=== PATIENT | female | born 1985 | race Caucasian/White ===

== ENCOUNTER 2018-07-27 21:51 | Emergency (ER) | payer MEDICAID ==
[~2018-07-27] VITALS: Ht 163.8 cm; Wt 110.2 kg
--- OUTSIDE RECORDS SUMMARY | 2018-07-27 21:56 | XMS REPORT | Continuity of Care Document ---
Author Organization Unknown Address Unknown Allergies Active Description Code Type Severity Reaction Onset Reported/Identified Relationship to Patient Clinical Status Yes Ceclor Drug Allergy N/A N/A 08/24/2013 Yes latex Drug Allergy N/A N/A 08/24/2013 Yes Penicillins Drug Allergy N/A N/A 08/24/2013 Medications There is no data. Problems Date Dx Coded Attending Type Code Diagnosis Diagnosed By 11/29/2007 LIBERTAD MURPHY MD V25.49 SURVEILLANCE OF OTHER CONTRACEPTIVE METHOD 11/29/2007 WADE KONG APRN V25.49 SURVEILLANCE OF OTHER CONTRACEPTIVE METHOD 05/20/2012 LIBERTAD MURPHY MD V72.42 TEST POSITIVE RESULT 05/20/2012 WADE KONG APRN V72.42 TEST POSITIVE RESULT 08/24/2013 WADE KONG APRN 719.47 PAIN IN JOINT INVOLVING ANKLE AND FOOT 08/24/2013 WADE KONG APRN 845.00 UNSPECIFIED SITE OF ANKLE SPRAIN Procedures Code [place] [address] URINE TEST (IN- HOUSE) 05/20/2012 Results There is no data. Encounters ACCT No. Visit Date/Time Discharge Status Pt. Type Provider Facility Loc./Unit Complaint [id number] 08/24/2013 08:50:00 08/24/2013 23:59:59 [facility] Outpatient WADE KONG APRN [id number] 05/20/2012 14:04:00 05/20/2012 23:59:59 [facility] Outpatient LIBERTAD MURPHY MD
[2018-07-27] MEDS ORDERED: ONDANSETRON 4 MG/2 ML (SDV) Z0FRAN IVP ONE (22:00)
[2018-07-27] MEDS ORDERED: diphenhydrAMINE 50 MG/ML INJ (BENADRYL) IVP ONE (22:00)
[2018-07-27] MEDS ORDERED: IBUPROFEN 800 MG (MOTRIN) TAB PO ONE (22:00)
[2018-07-27] MEDS ORDERED: NS IV 1000 ML 1,000 ML IV SCH (22:00)
--- NOTE | 2018-07-27 22:05 | ED EENT ---
History of Present Illness General Stated Complaint: EARACHE IN BOTH EARS,NAUSEA,FEVER Source: patient Exam Limitations: no limitations History of Present Illness Date Seen by Provider: Jul 27, 2018 Time Seen by Provider: 22:03 Initial Comments to ER per private vehicle with reports of awakening this morning with pain in both ears that has progressed throughout the day, nasal congestion, body aches nausea and fever. No cough and no shortness of breath. Timing/Duration: abrupt, this morning Severity: moderate Associated Symptoms: No cough; fever, nasal congestion/drainage Allergies and Home Medications Allergies Coded Allergies: Cefaclor (Verified Allergy, Unknown, 10/14/07) Patient Home Medication List Home Medication List Reviewed: Yes Review of Systems Review of Systems Constitutional: see HPI, chills, malaise Eyes: No Symptoms Reported Ears: No Symptoms Reported Nose: see HPI, congestion Mouth: no symptoms reported Throat: see HPI, pain Respiratory: no symptoms reported Cardiovascular: no symptoms reported Musculoskeletal: no symptoms reported Skin: no symptoms reported Neurological: No Symptoms Reported Hematologic/Lymphatic: No Symptoms Reported Immunological/Allergic: no symptoms reported Past Impshpc-Lffzkg-Bugtip Hx Patient Social History Recent Foreign Travel: No Contact w/Someone Who Travel: No Physical Exam Height, Weight, BMI Height: '" Weight: lbs. oz. kg; BMI Method: General Appearance: WD/WN, no apparent distress Eyes: bilateral eye normal inspection, bilateral eye PERRL, bilateral eye EOMI Ears: bilateral ear auricle normal, bilateral ear canal normal, bilateral ear TM normal Mouth/Throat: normal mouth inspection, pharynx normal; No maxillary swelling, No pharynx swelling, No pharynx tenderness, No tongue swollen, No tonsillar exudate, No tonsillar swelling, No trismus, No uvula swelling, No voice changes Neck: non-tender, full range of motion Cardiovascular: tachycardia (tachycardic at 145) Respiratory: lungs clear, normal breath sounds, no respiratory distress, no accessory muscle use; No decreased breath sounds, No accessory muscle use, No crackles, No rales, No rhonchi, No stridor, No wheezing Neurologic/Psychiatric: alert, normal mood/affect, oriented x 3 Skin: normal color, warm/dry Progress/Results/Core Measures Results/Orders Lab Results Laboratory Tests Test 07/27/18 22:05 Range/Units White Blood Count 12.0 H 4.3-11.0 10^3/uL Red Blood Count 5.01 4.35-5.85 10^6/uL Hemoglobin 14.2 11.5-16.0 G/DL Hematocrit 41 35-52 % Mean Corpuscular Volume 83 80-99 FL Mean Corpuscular Hemoglobin 28 25-34 PG Mean Corpuscular Hemoglobin Concent 34 32-36 G/DL Red Cell Distribution Width 14.1 10.0-14.5 % Platelet Count 284 130-400 10^3/uL Mean Platelet Volume 9.1 7.4-10.4 FL Neutrophils (%) (Auto) 81 H 42-75 % Lymphocytes (%) (Auto) 9 L 12-44 % Monocytes (%) (Auto) 7 0-12 % Eosinophils (%) (Auto) 2 0-10 % Basophils (%) (Auto) 0 0-10 % Neutrophils # (Auto) 9.8 H 1.8-7.8 X 10^3 Lymphocytes # (Auto) 1.1 1.0-4.0 X 10^3 Monocytes # (Auto) 0.9 0.0-1.0 X 10^3 Eosinophils # (Auto) 0.2 0.0-0.3 10^3/uL Basophils # (Auto) 0.0 0.0-0.1 10^3/uL Serum Test, Qualitative NEGATIVE NEGATIVE My Orders Orders - SARAH HIDALGO APRN Ns Iv 1000 Ml (Sodium Chloride 0.9%) (07/27/18 22:00) Ekg Tracing (07/27/18 22:00) Cbc With Automated Diff (07/27/18 22:00) Basic Metabolic Panel (07/27/18 22:00) Hcg,Qualitative Serum (07/27/18 22:00) Ondansetron Injection (Zofran Injectio (07/27/18 22:00) Diphenhydramine Injection (Benadryl Inje (07/27/18 22:00) Ibuprofen Tablet (Motrin Tablet) (07/27/18 22:00) Influenza A And B Antigens (07/27/18 22:02) Medications Given in ED Current Medications Medications Dose Ordered Sig/Kd Route Start Time Stop Time Status Last Admin Dose Admin Diphenhydramine HCl 12.5 mg ONCE ONCE IVP 07/27/18 22:00 07/27/18 22:03 DC 07/27/18 22:21 12.5 MG Ibuprofen 800 mg ONCE ONCE PO 07/27/18 22:00 07/27/18 22:03 DC 07/27/18 22:17 800 MG Ondansetron HCl 4 mg ONCE ONCE IVP 07/27/18 22:00 07/27/18 22:03 DC 07/27/18 22:19 4 MG Departure Impression Primary Impression: Acute viral syndrome Disposition: HOME, SELF-CARE Condition: Stable Departure-Patient Inst. Decision time for Depature: 22:36 Referrals: CUCO JOHNSON DO (PCP/Family) Primary Care Physician Patient Instructions: VIRAL SYNDROME Add. Discharge Instructions: 1. Medication as directed do not take any other wuvh-dgi-igrpthj cough and cold remedies with this. Follow-up with your doctor later this week Scripts D-Methorphan Hb/P-Epd HCl/Bpm (Bromfed Dm Cough Syrup) 118 Ml Syrup 5 ML PO Q6H PRN for CONGESTION, #60 ML Prov: SARAH HIDALGO APRN 07/27/18 Work/School Note: Work Release Form Date Seen in the Emergency Department: Jul 27, 2018 Return to Work: Jul 30, 2018 SARAH HIDALGO APRN Jul 27, 2018 22:05
[2018-07-27 22:13] LABS: BASOPHILS % (AUTO) 0 % (0-10); EOSINOPHILS # (AUTO) 0.2 10^3/uL (0.0-0.3); EOSINOPHILS % (AUTO) 2 % (0-10); HEMATOCRIT 41 % (35-52); HEMOGLOBIN 14.2 G/DL (11.5-16.0); LYMPHOCYTES # (AUTO) 1.1 X 10^3 (1.0-4.0); LYMPHOCYTES % (AUTO) 9 % (12-44); MEAN CORPUSCULAR HEMOGLOBIN 28 PG (25-34); MEAN CORPUSCULAR HGB CONC 34 G/DL (32-36); MEAN CORPUSCULAR VOLUME 83 FL (80-99); MEAN PLATELET VOLUME 9.1 FL (7.4-10.4); MONOCYTES # (AUTO) 0.9 X 10^3 (0.0-1.0); MONOCYTES % (AUTO) 7 % (0-12); NEUTROPHILS # (AUTO) 9.8 X 10^3 (1.8-7.8); NEUTROPHILS % (AUTO) 81 % (42-75); PLATELET COUNT 284 10^3/uL (130-400); RED CELL DISTRIBUTION WIDTH 14.1 % (10.0-14.5)
[2018-07-27 22:35] LABS: CALCIUM 9.7 MG/DL (8.5-10.1); CREATININE SERUM 1.33 MG/DL (0.60-1.30); POTASSIUM 3.9 MMOL/L (3.6-5.0)
[2018-07-27] MEDS ORDERED: D-ME118S33 PO (22:37)
--- NOTE | 2018-07-27 22:50 | NUR ---
report given to RANDOLPH Ambrosio
[2018-07-27 23:37] VITALS: BP 119/91
== END 2018-07-27 23:42 | disposition home or self-care (01) ==
LOC: EDUNIT# 21:51 → ER 21:53
DX: B34.9 Viral infection, unspecified (principal); Z88.1 Allergy status to other antibiotic agents
CPT/HCPCS: 36415; 80048; 84703; 85025; 87804; 93005

== ENCOUNTER 2019-12-13 22:05 | Emergency (ER) | payer MEDICAID ==
[~2019-12-13] VITALS: Ht 162 cm; Wt 100.0 kg
[~2019-12-13 22:05] MED LIST: D-ME118S33 PO
[2019-12-13] MEDS ORDERED: NS IV 1000 ML 1,000 ML IV SCH (22:38)
[2019-12-13] MEDS ORDERED: RX-ALBUTEROL INHALER (VENTOLIN HFA) 18 GM IH STA (22:38)
[2019-12-13] MEDS ORDERED: LEVOFLOXACIN 750 MG/150 ML IV 150 ML IV ONE (22:45)
[2019-12-13 22:56] LABS: BASOPHILS % (AUTO) 1 % (0-10); EOSINOPHILS # (AUTO) 0.2 10^3/uL (0.0-0.3); EOSINOPHILS % (AUTO) 3 % (0-10); HEMATOCRIT 39 % (35-52); HEMOGLOBIN 12.9 G/DL (11.5-16.0); LYMPHOCYTES # (AUTO) 2.6 X 10^3 (1.0-4.0); LYMPHOCYTES % (AUTO) 32 % (12-44); MEAN CORPUSCULAR HEMOGLOBIN 28 PG (25-34); MEAN CORPUSCULAR HGB CONC 33 G/DL (32-36); MEAN CORPUSCULAR VOLUME 85 FL (80-99); MEAN PLATELET VOLUME 9.1 FL (7.4-10.4); MONOCYTES # (AUTO) 0.6 X 10^3 (0.0-1.0); MONOCYTES % (AUTO) 7 % (0-12); NEUTROPHILS # (AUTO) 4.6 X 10^3 (1.8-7.8); NEUTROPHILS % (AUTO) 58 % (42-75); PLATELET COUNT 293 10^3/uL (130-400); RED CELL DISTRIBUTION WIDTH 13.8 % (10.0-14.5); WHITE BLOOD COUNT 8.1 10^3/uL (4.3-11.0)
[2019-12-13 23:05] LABS: BILIRUBIN,URINE NEGATIVE (NEGATIVE); CLARITY,URINE SL CLOUDY; COLOR,URINE YELLOW; GLUCOSE, URINE (UA) NEGATIVE (NEGATIVE); KETONES,URINE NEGATIVE (NEGATIVE); LEUKOCYTE ESTERASE ,URINE 1+ (NEGATIVE); NITRITE,URINE NEGATIVE (NEGATIVE); PROTEIN,URINE NEGATIVE (NEGATIVE)
[2019-12-13 23:08] LABS: ALBUMIN 3.7 GM/DL (3.2-4.5); POTASSIUM 4.5 MMOL/L (3.6-5.0)
[2019-12-13 23:09] LABS: CALCIUM 8.8 MG/DL (8.5-10.1)
[2019-12-13 23:10] LABS: TOTAL PROTEIN 6.8 GM/DL (6.4-8.2)
[2019-12-13 23:12] LABS: BILIRUBIN,TOTAL 0.7 MG/DL (0.1-1.0)
[2019-12-13 23:14] LABS: CREATININE SERUM 1.27 MG/DL (0.60-1.30)
[2019-12-13 23:15] LABS: RBC,URINE RARE /HPF; WBC,URINE 25-50 /HPF
[2019-12-13 23:16] LABS: BACTERIA,URINE FEW /HPF; SQUAMOUS EPITHELIAL CELL,UR 25-50 /HPF
--- NOTE | 2019-12-13 23:30 | ED Respiratory ---
General Chief Complaint: Respiratory Problems Stated Complaint: WHEEZING,SOB Nursing Triage Note: Pt arrives by POV with c/o shortness of breath and wheezing x 2 days; states she "always gets like this this time of year". Denies fever. Source: patient Exam Limitations: no limitations History of Present Illness Date Seen by Provider: Dec 13, 2019 Time Seen by Provider: 22:15 Initial Comments The patient arrives the ER by private conveyance with chief complaint of shortness of breath for the past 30 minutes with wheezing. No fevers or chills. Cough that is nonproductive. She has no known sick contacts or recent travel. She says about once a year she gets bronchitis or pneumonia similar to this. She does not have a history of asthma, COPD or smoking any cigarettes or vaporizers. She does follow with a primary care provider but has never been tested for asthma. She does not use inhalers. She's not having nausea, diarrhea, loss of taste or smell, nasal congestion or sore throat. she claims a history of chronic kidney disease stage III. she has gout and uses Allopurinol. Allergies and Home Medications Allergies Coded Allergies: Cefaclor (Verified Allergy, Unknown, 10/14/07) Home Medications D-Methorphan Hb/P-Epd HCl/Bpm 118 Ml Syrup, 5 ML PO Q6H PRN for CONGESTION Prescribed by: SARAH HIDALGO on 07/27/18 1597 Patient Home Medication List Home Medication List Reviewed: Yes Review of Systems Review of Systems Constitutional: No chills, No diaphoresis EENTM: No ear discharge, No ear pain Respiratory: cough; No phlegm; short of breath, wheezing Cardiovascular: No chest pain, No edema, No Hx of Intervention Gastrointestinal: No abdominal pain, No nausea, No vomiting Musculoskeletal: No back pain, No joint pain All Other Systems Reviewed Negative Unless Noted: Yes Past Kajfxmd-Bsdkgf-Igoxlb Hx Patient Social History Alcohol Use: Denies Use Recreational Drug Use: No Smoking Status: Never a Smoker 2nd Hand Smoke Exposure: No Recent Foreign Travel: No Contact w/Someone Who Travel: No Recent Infectious Disease Expo: No Recent Hopitalizations: No Past Medical History Surgeries: Yes Section Respiratory: No Cardiac: No Neurological: No Genitourinary: No Gastrointestinal: No Musculoskeletal: No Endocrine: No HEENT: No Cancer: No Psychosocial: No Integumentary: No Blood Disorders: No Adverse Reaction/Blood Tranf: No Physical Exam Vital Signs - First Documented 12/13/19 23:05 Temp 36.7 Pulse 114 Resp 20 B/P (MAP) 137/107 (117) Pulse Ox 96 O2 Delivery Room Air Capillary Refill : Less Than 3 Seconds Height: 5'4.50" Weight: 243lbs. oz. 110.439412zw; 38.00 BMI Method:Stated General Appearance: WD/WN, mild distress Eyes: Bilateral Eye Normal Inspection, Bilateral Eye PERRL, Bilateral Eye EOMI HEENT: PERRL/EOMI, TMs normal, pharynx normal Neck: full range of motion, normal inspection Respiratory: no respiratory distress, no accessory muscle use, rales; No rhonchi, No wheezing (left lower lobe) Cardiovascular: normal peripheral pulses, regular rate, rhythm Gastrointestinal: non tender, soft Neurologic/Psychiatric: alert, normal mood/affect, oriented x 3 Skin: normal color, warm/dry Focused Exam Lactate Level 12/13/19 22:45: Lactic Acid Level 0.86 Lactic Acid Level Laboratory Tests Test 12/13/19 22:45 Lactic Acid Level 0.86 MMOL/L (0.50-2.00) Progress/Results/Core Measures Suspected Sepsis Recent Fever Within 48 Hours: No Infection Criteria Present: None New/Unexplained Altered Menta: No Sepsis Screen: No Definite Risk SIRS Temperature: Pulse: 114 Respiratory Rate: 20 Laboratory Tests 12/13/19 22:45: White Blood Count 8.1 Blood Pressure 137 /107 Mean: 117 12/13/19 22:45: Lactic Acid Level 0.86 Laboratory Tests 12/13/19 22:45: Creatinine 1.27, INR Comment 1.0, Platelet Count 293, Total Bilirubin 0.7 Results/Orders Lab Results Laboratory Tests Test 12/13/19 22:45 12/13/19 22:51 Range/Units White Blood Count 8.1 4.3-11.0 10^3/uL Red Blood Count 4.60 4.35-5.85 10^6/uL Hemoglobin 12.9 11.5-16.0 G/DL Hematocrit 39 35-52 % Mean Corpuscular Volume 85 80-99 FL Mean Corpuscular Hemoglobin 28 25-34 PG Mean Corpuscular Hemoglobin Concent 33 32-36 G/DL Red Cell Distribution Width 13.8 10.0-14.5 % Platelet Count 293 130-400 10^3/uL Mean Platelet Volume 9.1 7.4-10.4 FL Neutrophils (%) (Auto) 58 42-75 % Lymphocytes (%) (Auto) 32 12-44 % Monocytes (%) (Auto) 7 0-12 % Eosinophils (%) (Auto) 3 0-10 % Basophils (%) (Auto) 1 0-10 % Neutrophils # (Auto) 4.6 1.8-7.8 X 10^3 Lymphocytes # (Auto) 2.6 1.0-4.0 X 10^3 Monocytes # (Auto) 0.6 0.0-1.0 X 10^3 Eosinophils # (Auto) 0.2 0.0-0.3 10^3/uL Basophils # (Auto) 0.0 0.0-0.1 10^3/uL Prothrombin Time 13.0 12.2-14.7 SEC INR Comment 1.0 0.8-1.4 Activated Partial Thromboplast Time 31 24-35 SEC Sodium Level 139 135-145 MMOL/L Potassium Level 4.5 3.6-5.0 MMOL/L Chloride Level 108 H 98-107 MMOL/L Carbon Dioxide Level 21 21-32 MMOL/L Anion Gap 10 5-14 MMOL/L Blood Urea Nitrogen 17 7-18 MG/DL Creatinine 1.27 0.60-1.30 MG/DL Estimat Glomerular Filtration Rate 49 BUN/Creatinine Ratio 13 Glucose Level 91 70-105 MG/DL Lactic Acid Level 0.86 0.50-2.00 MMOL/L Calcium Level 8.8 8.5-10.1 MG/DL Corrected Calcium 9.0 8.5-10.1 MG/DL Total Bilirubin 0.7 0.1-1.0 MG/DL Aspartate Amino Transf (AST/SGOT) 16 5-34 U/L Alanine Aminotransferase (ALT/SGPT) 36 0-55 U/L Alkaline Phosphatase 55 40-136 U/L Total Protein 6.8 6.4-8.2 GM/DL Albumin 3.7 3.2-4.5 GM/DL Urine Color YELLOW Urine Clarity SL CLOUDY Urine pH 6.0 5-9 Urine Specific Rodessa 1.010 L 1.016-1.022 Urine Protein NEGATIVE NEGATIVE Urine Glucose (UA) NEGATIVE NEGATIVE Urine Ketones NEGATIVE NEGATIVE Urine Nitrite NEGATIVE NEGATIVE Urine Bilirubin NEGATIVE NEGATIVE Urine Urobilinogen 0.2 < = 1.0 MG/DL Urine Leukocyte Esterase 1+ H NEGATIVE Urine RBC (Auto) 2+ H NEGATIVE Urine RBC RARE /HPF Urine WBC 25-50 H /HPF Urine Squamous Epithelial Cells 25-50 H /HPF Urine Crystals NONE /LPF Urine Bacteria FEW H /HPF Urine Casts NONE /LPF Urine Mucus NEGATIVE /LPF Urine Culture Indicated YES My Orders Orders - CATHERINE NAVARRO Cbc With Automated Diff (12/13/19 22:38) Comprehensive Metabolic Panel (12/13/19 22:38) Blood Culture (12/13/19 22:38) Sputum Culture (12/13/19 22:38) Urinalysis (12/13/19 22:38) Urine Culture (12/13/19 22:38) Protime With Inr (12/13/19 22:38) Partial Thromboplastin Time (12/13/19 22:38) Chest 1 View, Ap/Pa Only (12/13/19 22:38) Ed Iv/Invasive Line Start (12/13/19 22:38) Ed Iv/Invasive Line Start (12/13/19 22:38) Vital Signs Adult Sepsis Patie Q15M (12/13/19 22:38) O2 (12/13/19 22:38) Remove Rings In Anticipation O (12/13/19 22:38) Lactic Acid Analyzer (12/13/19 22:38) Ns Iv 1000 Ml (Sodium Chloride 0.9%) (12/13/19 22:38) Levofloxacin 750 Mg/150 Ml Iv (Levaquin (12/13/19 22:45) Rx-Albuterol Inhaler (Rx-Ventolin Hfa) (12/13/19 22:38) Medications Given in ED Current Medications Medications Dose Ordered Sig/Kd Route Start Time Stop Time Status Last Admin Dose Admin Levofloxacin/ Dextrose 150 ml @ 100 mls/hr ONCE ONCE IV 12/13/19 22:45 12/14/19 00:14 12/13/19 23:12 100 MLS/HR Vital Signs/I&O 12/13/19 23:05 Temp 36.7 Pulse 114 Resp 20 B/P (MAP) 137/107 (117) Pulse Ox 96 O2 Delivery Room Air Capillary Refill : Less Than 3 Seconds Blood Pressure Mean: 117 Progress Note : Time: 23:29 Progress Note patient's tachycardic around 110-115 and has a cough with rails and subjective shortness of air. Oxygen sats are 96-98% on room air. No history of lung disease. Plan to initiate a septic workup but her white count was not elevated nor is her respiratory rate so she is not septic. We'll give her a liter of fluids to help rehydrate her and a pro-air inhaler which she said she did get some improvement from. Because of her history of Ceclor allergy we will give her Levaquin. no clear infiltrate on chest x-ray and no white count. Could be a viral versus bacterial pneumonia so we will swab her for COVID-19 and put her on outpatient Levaquin. Diagnostic Imaging Diagonstic Imaging: Xray Plain Films/CT/US/NM/MRI: chest Comments no clear infiltrate on one view chest x-ray. Reviewed: Reviewed by Me Departure Impression Primary Impression: Pneumonia Qualified Codes: J18.9 - Pneumonia, unspecified organism Additional Impression: Person under investigation for COVID-19 Disposition: 01 HOME, SELF-CARE Condition: Improved Departure-Patient Inst. Decision time for Depature: 23:30 Referrals: CUCO JOHNSON DO (PCP/Family) Primary Care Physician Patient Instructions: Pneumonia, Adult (DC), Coronavirus Disease 2019 (COVID- 19) Overview Add. Discharge Instructions: 2 puffs of albuterol through the spacer every 4 hours as necessary for wheezing or chronic cough. Tessalon Perles 1 capsule every 6 hours as necessary for coughing. Drink plenty of fluids. Stay quarantined for 10 days from now until 12/22/19 and you are 72 hours without symptoms. set up inspector the Levaquin and take one tablet daily with food for the next 6 days. We will call you in the next 2-3 days with results from your COVID-19 test. All discharge instructions reviewed with patient and/or family. Voiced understanding. Scripts Levofloxacin (Levaquin) 750 Mg Tablet 750 MG PO DAILY for 6 Days, #6 TAB 0 Refills Prov: CATHERINE NAVARRO 12/13/19 Benzonatate (TESSALON PERLES) 100 Mg Capsule 100 MG PO Q6H PRN for COUGH, #30 CAP 0 Refills Prov: CATHERINE NAVARRO 12/13/19 Work/School Note: Work Release Form Date Seen in the Emergency Department: Dec 13, 2019 Return to Work: Dec 23, 2019 Restrictions: No Restrictions Other Restrictions Listed Below: May return to work 10 days from start of symptoms and 72 hours symptom free CATHERINE NAVARRO Dec 13, 2019 23:30
[2019-12-13] MEDS ORDERED: LEVO750T9 PO (23:40)
[2019-12-13] MEDS ORDERED: BENZ100C18 PO (23:40)
[2019-12-14 00:21] VITALS: BP 133/104
--- NOTE | 2019-12-14 05:29 | Diagnostic Imaging Report ---
INDICATION: Shortness of air. COMPARISON: None FINDINGS: Single frontal radiographic view of the chest was obtained and shows moderate cardiomegaly and pulmonary vascular congestion. Pulmonary interstitium is also mildly diffusely prominent. There is no large effusion or pneumothorax. Osseous structures show no acute abnormalities. IMPRESSION: 1. Cardiomegaly with sequela of CHF including probable mild interstitial pulmonary edema. Dictated by: Dictated on workstation # [id number]
== END 2019-12-14 00:24 | disposition home or self-care (01) ==
LOC: EDUNIT# 22:05 → ER 22:06
DX: J18.9 Pneumonia, unspecified organism (principal); N18.3 Chronic kidney disease, stage 3 (moderate); M10.9 Gout, unspecified; Z88.1 Allergy status to other antibiotic agents; Z20.828 Contact with and (suspected) exposure to other viral communicable diseases
CPT/HCPCS: 71045; 80053; 81000; 83605; 85025; 85610; 85730; 87040; 87088; 94640; 96361; 96365; 99284; U0002; 36415; 87635

== ENCOUNTER 2020-01-23 02:26 | Inpatient (IN) | payer MEDICAID ==
[~2020-01-23] VITALS: Ht 163.8 cm; Wt 94.3 kg
[2020-01-23] VITALS (7 sets, daily range): BP systolic 102–134; BP diastolic 72–95
[~2020-01-23 02:26] MED LIST changes: +BENZ100C18 PO; +LEVO750T9 PO
[2020-01-23] MEDS ORDERED: LACTATED RINGERS 1,000 ML IV ONE (02:55)
[2020-01-23 03:04] LABS: BASOPHILS # (AUTO) 0.1 10^3/uL (0.0-0.1); BASOPHILS % (AUTO) 1 % (0-10); EOSINOPHILS # (AUTO) 0.3 10^3/uL (0.0-0.3); EOSINOPHILS % (AUTO) 3 % (0-10); HEMATOCRIT 39 % (35-52); HEMOGLOBIN 12.5 g/dL (11.5-16.0); LYMPHOCYTES # (AUTO) 2.7 10^3/uL (1.0-4.0); LYMPHOCYTES % (AUTO) 26 % (12-44); MEAN CORPUSCULAR HEMOGLOBIN 28 pg (25-34); MEAN CORPUSCULAR HGB CONC 32 g/dL (32-36); MEAN CORPUSCULAR VOLUME 87 fL (80-99); MEAN PLATELET VOLUME 8.7 fL (9.0-12.2); MONOCYTES # (AUTO) 0.7 10^3/uL (0.0-1.0); MONOCYTES % (AUTO) 7 % (0-12); NEUTROPHILS # (AUTO) 6.8 10^3/uL (1.8-7.8); NEUTROPHILS % (AUTO) 64 % (42-75); PLATELET COUNT 266 10^3/uL (130-400); WHITE BLOOD COUNT 10.6 10^3/uL (4.3-11.0)
[2020-01-23 03:14] LABS: ALBUMIN 3.8 GM/DL (3.2-4.5); POTASSIUM 3.7 MMOL/L (3.6-5.0)
[2020-01-23 03:15] LABS: CALCIUM 8.8 MG/DL (8.5-10.1)
[2020-01-23 03:16] LABS: TOTAL PROTEIN 6.7 GM/DL (6.4-8.2)
[2020-01-23 03:18] LABS: BILIRUBIN,TOTAL 1.5 MG/DL (0.1-1.0)
[2020-01-23 03:20] LABS: CREATININE SERUM 1.51 MG/DL (0.60-1.30)
--- NOTE | 2020-01-23 03:38 | ED Respiratory ---
General Chief Complaint: Chest Wall Stated Complaint: CHEST TIGHTNESS Nursing Triage Note: TO ED VIA POV AND AMBULATORY TO ROOM 10 UNDER COVID PUI PRECAUTIONS. RECENT BRONCHITIS. USING SYMBICORT BID. TONIGHT WOKE UP, COUGHED UP PHLEGM, AND THEN FELT LIKE SHE COULDN'T CATCH HER BREATH. Source: patient Exam Limitations: no limitations History of Present Illness Date Seen by Provider: Jan 23, 2020 Time Seen by Provider: 02:48 Initial Comments Here with report of waking up the middle the night and coughing up phlegm. She had chest pain afterwards and felt like she couldn't catch her breath. She has not been sick recently although had pneumonia over a month ago. Patient denies contact with COVID positive persons or any but it's been sick. 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 Nobody in her family is sick. Reports that she was doing better after recent illness until suddenly tonight after she coughed. Timing/Duration: constant Severity: moderate Prior Episodes/Possible Cause: occasional episodes Modifying Factors: Worse With Coughing; Improves With Rest Associated Symptoms: cough; No fever/chills, No nasal congestion; shortness of breath; No sore throat, No wheezing Allergies and Home Medications Allergies Coded Allergies: Penicillins (Verified Allergy, Unknown, 01/23/20) cefaclor (Verified Allergy, Unknown, 10/14/07) Home Medications Benzonatate 100 Mg Capsule, 100 MG PO Q6H PRN for COUGH Prescribed by: CATHERINE NAVARRO on 12/13/19 2340 D-Methorphan Hb/P-Epd HCl/Bpm 118 Ml Syrup, 5 ML PO Q6H PRN for CONGESTION Prescribed by: SARAH HIDALGO on 07/27/187 Levofloxacin 750 Mg Tablet, 750 MG PO DAILY Prescribed by: CATHERINE NAVARRO on 12/13/19 2340 Patient Home Medication List Home Medication List Reviewed: Yes Review of Systems Review of Systems Constitutional: No chills, No fever EENTM: No nose congestion, No throat pain Respiratory: cough, short of breath Cardiovascular: chest pain; No edema Gastrointestinal: No abdominal pain, No nausea, No vomiting Genitourinary: no symptoms reported Musculoskeletal: no symptoms reported Skin: no symptoms reported All Other Systems Reviewed Negative Unless Noted: Yes Past Mdziven-Saevhb-Zyfymi Hx Past Med/Social Hx: Reviewed Nursing Past Med/Soc Hx Patient Social History Alcohol Use: Denies Use Recreational Drug Use: No Smoking Status: Never a Smoker 2nd Hand Smoke Exposure: No Recent Foreign Travel: No Contact w/Someone Who Travel: No Recent Infectious Disease Expo: No Recent Hopitalizations: No Physical Abuse: No Sexual Abuse: No Mistreated: No Fear: No Immunizations Up To Date Date of Influenza Vaccine: Dec 19, 2019 Past Medical History Surgeries: Yes Section Respiratory: No Cardiac: No Neurological: No Genitourinary: No Gastrointestinal: No Musculoskeletal: Yes Gout Endocrine: No HEENT: No Cancer: No Psychosocial: No Integumentary: No Blood Disorders: No Adverse Reaction/Blood Tranf: No Family Medical History Reviewed Nursing Family Hx Physical Exam Vital Signs - First Documented 01/23/20 01/23/20 02:45 04:24 Temp 36.3 Pulse 135 Resp 24 B/P (MAP) 130/104 (113) Pulse Ox 95 O2 Delivery Room Air O2 Flow Rate 2.00 Capillary Refill : Less Than 3 Seconds Height: 5'4.50" Weight: 243lbs. oz. 110.459795ym; 35.00 BMI Method:Stated General Appearance: WD/WN, no apparent distress HEENT: PERRL/EOMI, pharynx normal Neck: full range of motion, supple Respiratory: no accessory muscle use, crackles (left base) Cardiovascular: no murmur, tachycardia Gastrointestinal: non tender, soft Extremities: non-tender, normal inspection Neurologic/Psychiatric: alert, oriented x 3 Skin: normal color, warm/dry Progress/Results/Core Measures Suspected Sepsis Recent Fever Within 48 Hours: No Infection Criteria Present: Suspected New Infection New/Unexplained Altered Menta: No Sepsis Screen: Possible Severe Sepsis Risk SIRS Temperature: Pulse: 135 Respiratory Rate: 24 Laboratory Tests 01/23/20 02:50: White Blood Count 10.6 Blood Pressure 130 /104 Mean: 113 Laboratory Tests 01/23/20 02:50: Creatinine 1.51H, Platelet Count 266, Total Bilirubin 1.5H Results/Orders Lab Results Laboratory Tests Test 01/23/20 02:50 01/23/20 03:34 01/23/20 04:32 Range/Units White Blood Count 10.6 4.3-11.0 10^3/uL Red Blood Count 4.45 3.80-5.11 10^6/uL Hemoglobin 12.5 11.5-16.0 g/dL Hematocrit 39 35-52 % Mean Corpuscular Volume 87 80-99 fL Mean Corpuscular Hemoglobin 28 25-34 pg Mean Corpuscular Hemoglobin Concent 32 32-36 g/dL Red Cell Distribution Width 14.0 10.0-14.5 % Platelet Count 266 130-400 10^3/uL Mean Platelet Volume 8.7 L 9.0-12.2 fL Immature Granulocyte % (Auto) 0 % Neutrophils (%) (Auto) 64 42-75 % Lymphocytes (%) (Auto) 26 12-44 % Monocytes (%) (Auto) 7 0-12 % Eosinophils (%) (Auto) 3 0-10 % Basophils (%) (Auto) 1 0-10 % Neutrophils # (Auto) 6.8 1.8-7.8 10^3/uL Lymphocytes # (Auto) 2.7 1.0-4.0 10^3/uL Monocytes # (Auto) 0.7 0.0-1.0 10^3/uL Eosinophils # (Auto) 0.3 0.0-0.3 10^3/uL Basophils # (Auto) 0.1 0.0-0.1 10^3/uL Immature Granulocyte # (Auto) 0.0 0.0-0.1 10^3/uL D-Dimer 2.24 H 0.00-0.49 UG/ML Sodium Level 141 135-145 MMOL/L Potassium Level 3.7 3.6-5.0 MMOL/L Chloride Level 107 98-107 MMOL/L Carbon Dioxide Level 22 21-32 MMOL/L Anion Gap 12 5-14 MMOL/L Blood Urea Nitrogen 17 7-18 MG/DL Creatinine 1.51 H 0.60-1.30 MG/DL Estimat Glomerular Filtration Rate 40 BUN/Creatinine Ratio 11 Glucose Level 95 70-105 MG/DL Calcium Level 8.8 8.5-10.1 MG/DL Corrected Calcium 9.0 8.5-10.1 MG/DL Total Bilirubin 1.5 H 0.1-1.0 MG/DL Aspartate Amino Transf (AST/SGOT) 16 5-34 U/L Alanine Aminotransferase (ALT/SGPT) 28 0-55 U/L Alkaline Phosphatase 56 40-136 U/L Troponin I 0.034 H <0.028 NG/ML C-Reactive Protein High Sensitivity 1.19 H 0.00-0.50 MG/DL B-Type Natriuretic Peptide 497.0 H <100.0 PG/ML Total Protein 6.7 6.4-8.2 GM/DL Albumin 3.8 3.2-4.5 GM/DL Procalcitonin 0.05 <0.10 NG/ML Thyroid Stimulating Hormone (TSH) 3.41 0.35-4.94 UIU/ML Urine Color YELLOW Urine Clarity CLEAR Urine pH 5.5 5-9 Urine Specific [place] 1.020 1.016-1.022 Urine Protein NEGATIVE NEGATIVE Urine Glucose (UA) NEGATIVE NEGATIVE Urine Ketones NEGATIVE NEGATIVE Urine Nitrite NEGATIVE NEGATIVE Urine Bilirubin NEGATIVE NEGATIVE Urine Urobilinogen 0.2 < = 1.0 MG/DL Urine Leukocyte Esterase TRACE H NEGATIVE Urine RBC (Auto) NEGATIVE NEGATIVE Urine RBC NONE /HPF Urine WBC NONE /HPF Urine Squamous Epithelial Cells 2-5 /HPF Urine Crystals NONE /LPF Urine Bacteria NEGATIVE /HPF Urine Casts NONE /LPF Urine Mucus NEGATIVE /LPF Urine Culture Indicated NO My Orders Orders - EBONY CAPONE MD Ed Iv/Invasive Line Start (01/23/20 02:55) Ekg Tracing (01/23/20 02:55) Monitor-Rhythm Ecg Trace Only (01/23/20 02:55) Chest 1 View, Ap/Pa Only (01/23/20 02:55) Ed Iv/Invasive Line Start (01/23/20 02:55) Lactated Ringers (Lr 1000 Ml Iv Solution (01/23/20 02:55) Cbc With Automated Diff (01/23/20 02:55) Comprehensive Metabolic Panel (01/23/20 02:55) Hs C Reactive Protein (01/23/20 02:55) Fibrin Degradation Products (01/23/20 02:55) Procalcitonin (Pct) (01/23/20 02:55) Thyroid Stimulating Hormone (01/23/20 02:55) Troponin I (01/23/20 02:55) Ua Culture If Indicated (01/23/20 03:19) BNP (01/23/20 03:31) Fentanyl Injection (Sublimaze Injection (01/23/20 04:07) Ondansetron Injection (Zofran Injectio (01/23/20 04:15) Enoxaparin Injection (Lovenox Injection) (01/23/20 04:30) Albuterol Inhaler (Ventolin Hfa) (01/23/20 06:00) Covid 19 Inhouse Test (01/23/20 04:31) Lung Scan V And P (Vq) (01/23/20 04:40) Medications Given in ED Current Medications Medications Dose Ordered Sig/Kd Route Start Time Stop Time Status Last Admin Dose Admin Enoxaparin Sodium 90 mg ONCE ONCE SC 01/23/20 04:30 01/23/20 04:31 DC 01/23/20 04:55 90 MG Lactated Ringer's 1,000 ml @ 0 mls/hr Q0M ONCE IV 01/23/20 02:55 01/23/20 02:57 DC 01/23/20 03:04 1,000 MLS/HR Ondansetron HCl 4 mg ONCE ONCE IVP 01/23/20 04:15 01/23/20 04:16 DC 01/23/20 04:19 4 MG Vital Signs/I&O 01/23/20 01/23/20 02:45 04:24 Temp 36.3 Pulse 135 122 Resp 24 20 B/P (MAP) 130/104 (113) 134/95 (108) Pulse Ox 95 O2 Delivery Room Air Nasal Cannula O2 Flow Rate 2.00 Capillary Refill : Less Than 3 Seconds Blood Pressure Mean: 113 Progress Note : Progress Note Seen and evaluated. IV, labs, chest x-ray and EKG ordered. UA ordered. LR 1 L bolus. Monitor patient. 0437: I did discuss the case with Dr. Castelan, on-call for hospitalist. Patient has markedly elevated d-dimer with tachycardia and O2 sats that are running at about 92%. Concern for PE. Patient does not have any leg pain or swelling but does have dilated heart and some findings on chest x- ray of heart failure or pulmonary edema. This could be infiltrate bed white count is normal in progress and pro-calcitonin is low. Greatest concern is for pulmonary embolism. Lovenox 1 mg/kg subcutaneous ordered. We will continue that twice a day. Dr. Castelan accepts patient for admission pending VQ scan. Patient is unable to do CT angiogram due to renal dysfunction. Admit, observation status. Patient agrees with plan. Due to presentation and concerns for bronchitis, we will go ahead and get COVID-19 rapid swab and confirmatory testing if needed. Patient will be person under investigation. ECG Initial ECG Impression Date: Jan 23, 2020 Initial ECG Impression Time: 02:55 Initial ECG Rate: 130 Initial ECG Rhythm: S.Tach Comment Sinus tachycardia with left ventricular hypertrophy. Normal axis. No evidence of ST elevation [place]. Similar to previous of 07/27/18. Interpreted by me. Diagnostic Imaging Diagonstic Imaging: Xray Plain Films/CT/US/NM/MRI: chest Comments Cardiomegaly with pulmonary vascular congestion Reviewed: Reviewed by Me Departure Communication (Admissions) Time/Spoke to Admitting Phy: 04:37 Impression Primary Impression: Dyspnea Qualified Codes: R06.02 - Shortness of breath Additional Impressions: Tachycardia Person under investigation for COVID-19 Disposition: 09 ADMITTED INPATIENT Condition: Stable Admissions Decision to Admit Reason: Admit from ER (General) Decision to Admit/Date: Jan 23, 2020 Time/Decision to Admit Time: 04:37 Departure-Patient Inst. Referrals: CUCO JOHNSON DO (PCP/Family) Primary Care Physician EBONY CAPONE MD Jan 23, 2020 03:38
[2020-01-23 03:40] LABS: BILIRUBIN,URINE NEGATIVE (NEGATIVE); CLARITY,URINE CLEAR; COLOR,URINE YELLOW; GLUCOSE, URINE (UA) NEGATIVE (NEGATIVE); KETONES,URINE NEGATIVE (NEGATIVE); LEUKOCYTE ESTERASE ,URINE TRACE (NEGATIVE); NITRITE,URINE NEGATIVE (NEGATIVE); PH,URINE 5.5 (5-9); PROTEIN,URINE NEGATIVE (NEGATIVE)
[2020-01-23 03:56] LABS: BACTERIA,URINE NEGATIVE /HPF
[2020-01-23] MEDS ORDERED: fentaNYL INJECTION 100 MCG/2 ML AMP IVP STA (04:07)
[2020-01-23] MEDS ORDERED: ONDANSETRON 4 MG/2 ML (SDV) Z0FRAN IVP ONE (04:15)
[2020-01-23] MEDS ORDERED: ENOXAPARIN 100 MG/1 ML (LOVENOX) SYR SC ONE (04:30)
[2020-01-23] MEDS ORDERED: ASPIRIN 81 MG CHEW (CHILDREN'S ASA) PO STA (04:44)
--- NOTE | 2020-01-23 05:03 | NUR ---
TELEPHONE REPORT RECEIVED FROM ED AT THIS TIME.
[2020-01-23] MEDS ORDERED: CATHETER FLUSH 10 ML SYR IV PRN (05:30)
--- NOTE | 2020-01-23 05:45 | NUR ---
JERICA SCOTT admitted to room 413-1, with an admitting diagnosis of DYSPNEA, TACHYCARDIA, COVID PUI, on 01/23/20 from [place] via , accompanied by .JERICA SCOTT introduced to surroundings, call light, bed controls, phone, TV, temperature control, lights, meal times, smoking policy, visitor policy, side rail policy, bathrooms and showers. Patient Rights given to patient in the handbook. JERICA SCOTT verbalizes understanding that [facility] is not responsible for the loss or damage to any personal effects or valuables that are kept in the patients posession during their hospitalization. JERICA SCOTT verbalizes understanding of Interdisciplinary Patient Education. Patient and/or family were informed about the Rapid Response Team and its purpose.
--- NOTE | 2020-01-23 05:58 | Diagnostic Imaging Report ---
INDICATION: Chest pain. TECHNIQUE: Single view chest 4:05 AM. CORRELATION STUDY: 12/13/2019 FINDINGS: Heart size remains mildly enlarged. Vasculature slightly increased. Increasing opacity at the right lung base could reflect underlying infiltrate. IMPRESSION: 1. Cardiac enlargement with what appears to be increasing component of vascularity. 2. Superimposed infiltrate or edema at the right lung base. Dictated by: Dictated on workstation # [id number]
[2020-01-23] MEDS ORDERED: RT-ALBUTEROL INHALER HFA (VENTOLIN HFA) 18 GM IH SCH (06:00)
[2020-01-23] MEDS ORDERED: ENOXAPARIN 100 MG/1 ML (LOVENOX) SYR SC SCH (06:00)
[2020-01-23] MEDS ORDERED: ALLO300T2 PO (06:15)
--- NOTE | 2020-01-23 08:29 | NUR ---
DR SANDRA NOTIFIED PER PT REQUEST REGARDING PAIN MEDICATION
[2020-01-23] MEDS ORDERED: RT-ALBUTEROL INHALER HFA (VENTOLIN HFA) 18 GM IH PRN (08:30)
[2020-01-23] MEDS: KETOROLAC 15 MG/ML VIAL IVP PRN ×3 (09:10→20:53)
[2020-01-23] MEDS: RT-ALBUTEROL INHALER HFA (VENTOLIN HFA) 18 GM IH SCH ×3 (09:12→21:35)
--- NOTE | 2020-01-23 11:24 | NUR ---
RECEIVED CALL FROM MONITORS FOR HR 130'S. RN WENT TO BEDSIDE AND PT WAS UP IN BA, NO COMPLAINTS OR DISCOMFORT REPORTED BY PT. WILL CONTINUE TO MONITOR.
--- NOTE | 2020-01-23 13:34 | History & Physical-Hospitalist ---
History of Present Illness HPI/Chief Complaint Pt is a 34yoCF with a PMH of gout and recent bronchitis who presented to the ER due to shortness of breath. She states that all of her symptoms started on 12/13 and she was diagnosed with bronchitis at that time. She has had a chronic cough and SOB since that time. She states she woke up last night though at 0138 and wa s very SOB and couldn't take a deep breath prompting her to seek evaluation in the ER. She states it felt just like when she was sick in November. She reports feeling better today and has been off oxygen even. 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 Source: patient Date Seen 01/23/20 Time Seen by a Provider: 13:28 Attending Physician Bryn Castelan MD PCP Jaspreet Waldrop DO Referring Physician Date of Admission Jan 23, 2020 at 04:42 Home Medications & Allergies Home Medications Reviewed patient Home Medication Reconciliation performed by pharmacy medication reconciliations it telecom technician and/or nursing. Patients Allergies have been reviewed. Allergies Allergies Coded Allergies Penicillins (Verified Allergy, Unknown, 01/23/20) cefaclor (Verified Allergy, Unknown, 10/14/07) Past Lfszthh-Cjynzf-Euszqv Hx Past Med/Social Hx: Reviewed Nursing Past Med/Soc Hx Patient Social History Marrital Status: Employed/Student: employed Alcohol Use: Denies Use Recreational Drug Use: No Smoking Status: Never a Smoker 2nd Hand Smoke Exposure: No Recent Foreign Travel: No Contact w/other who traveled: No Recent Hopitalizations: No Recent Infectious Disease Expo: No Immunizations Up To Date Date of Pneumonia Vaccine: Jan 22, 2013 Date of Influenza Vaccine: Jan 17, 2020 Past Medical History Surgeries: Section : No Musculoskeletal: Gout History of Blood Disorders: No Adverse Reaction to Blood Chinchilla: No Family History Reviewed Nursing Family Hx Review of Systems Constitutional: No chills, No fever EENTM: no symptoms reported Respiratory: cough, dyspnea on exertion, short of breath Cardiovascular: see HPI, chest pain; No edema Gastrointestinal: No abdominal pain, No constipation, No diarrhea, No nausea, No vomiting Genitourinary: No dysuria, No frequency Musculoskeletal: No joint pain, No muscle pain, No muscle weakness Skin: no symptoms reported Psychiatric/Neurological: No Symptoms Reported Physical Exam Physical Exam Vital Signs Vital Signs - First Documented 01/23/20 01/23/20 01/23/20 02:45 04:24 08:17 Temp 36.3 Pulse 135 Resp 24 B/P (MAP) 130/104 (113) Pulse Ox 95 O2 Delivery Room Air O2 Flow Rate 2.00 FiO2 28 Capillary Refill : Less Than 3 Seconds Height, Weight, BMI Height: 5'4.50" Weight: 243lbs. oz. 110.566102bw; 35.14 BMI Method:Stated General Appearance: No Apparent Distress, WD/WN, Obese HEENT: PERRL/EOMI, Moist Mucous Membranes Neck: Normal Inspection, Supple Respiratory: Lungs Clear, No Accessory Muscle Use, Other (on 2lpm) Cardiovascular: Regular Rate, Rhythm, No Murmur Gastrointestinal: Normal Bowel Sounds, Non Tender, Soft Extremity: Normal Capillary Refill, Normal Inspection, No Calf Tenderness, No Pedal Edema Neurologic/Psychiatric: Alert, Oriented x3, Normal Mood/Affect Skin: Normal Color, Warm/Dry Results Results/Procedures Labs Laboratory Tests 01/23/20 02:50 Patient resulted labs reviewed. Imaging [facility] [place], [place] NAME: JERICA SCOTT [facility] REC#: [id number] PT STATUS: ADM Colin : 1985 PHYSICIAN: EBONY CAPONE MD ADMIT DATE: 01/23/20 Signed Date of Exam:01/23/20 CHEST 1 VIEW, AP/PA ONLY INDICATION: Chest pain. TECHNIQUE: Single view chest 4:05 AM. CORRELATION STUDY: 12/13/2019 FINDINGS: Heart size remains mildly enlarged. Vasculature slightly increased. Increasing opacity at the right lung base could reflect underlying infiltrate. IMPRESSION: 1. Cardiac enlargement with what appears to be increasing component of vascularity. 2. Superimposed infiltrate or edema at the right lung base. Dictated by: Dictated on workstation # [id number] Dict: 01/23/20 0555 Trans: 01/23/20 1146 VALERIO [id number] Interpreted by: BILL ELIZABETH DO Electronically signed by: BILL ELIZABETH DO 01/23/20 1146 Assessment/Plan Admission Diagnosis Hypoxia Admission Status: Inpatient Order (span 2 midnights) Reason for Inpatient Admission: see below Assessment and Plan Hypoxia COVID19 sinus tachycardia Unclear etiology but COVID PCR pending at this time Questionable cardiac enlargement on CXR Cardiology consulted, appreciate recs Echo ordered Procal negative so hold abx D-dimer up so VQ scan ordered (unable to get CTA due to creatinine elevation) BNP elevated- lasix Metoprolol for sinus tach DVT ppx: on therapeutic lovenox for elevated D-dimer Diagnosis/Problems Diagnosis/Problems (1) Person under investigation for COVID-19 Status: Acute (2) Tachycardia Status: Acute (3) Dyspnea Status: Acute Qualifiers: Dyspnea type: shortness of breath Qualified Codes: R06.02 - Shortness of breath Clinical Quality Measures DVT/VTE Risk/Contraindication: Risk Factor Score Per Nursin RFS Level Per Nursing on Admit: 2=Moderate JORDAN SANDRA MD Jan 23, 2020 13:34
[2020-01-23] MEDS ORDERED: FUROSEMIDE 40 MG/4 ML INJ (LASIX) IVP NR (14:15)
[2020-01-23] MEDS ORDERED: KCL 20 MEQ TAB (K-DUR) PO NR (14:15)
[2020-01-23] MEDS ORDERED: meTOproloL SUCCINATE 50 MG (TOPROL XL) TAB PO NR (14:15)
--- NOTE | 2020-01-23 14:22 | Consultation-Cardiology ---
HPI-Cardiology Cardiology Consultation: Date of Consultation 01/23/20 Time Seen by a Provider: 14:17 Date of Admission Attending Physician Bryn Castelan MD Admitting Physician Jaspreet Waldrop DO Consulting Physician BRETT GALLAGHER MD, MA, FACP, FACC, FSCAI, CCDS HPI: Chief Complaint: Reason for consultation: Chest discomfort HPI 34 yo woman with several weeks of productive cough, diagnosed as bronchitis, treated with antibiotics, but continues to have persistent symptoms. After a coughing bout this am, has been experiencing a generalized feeling of chest tightness, mild, w/o radiation or relieving factors, but worse with coughing. Notes gen malaise. Does not report fever or chills. Feels short of breath with mild activity Review of Systems-Cardiology Review of Systems Constitutional: malaise, tiredness; No weight loss, No weight gain Eyes: No vision change Ears/Nose/Throat: No ear discharge, No nasal drainage, No recent hearing loss Respiratory: As described under HPI Cardiovascular: As described under HPI Gastrointestinal: No nausea, No vomiting Genitourinary: No dysuria, No hematuria, No urine frequency changes Musculoskeletal: No back pain, No joint pain Skin: No rash Psychiatric/Neurological: No seizure, No focal weakness, No syncope Hematologic: No bleeding abnormalities All Other Systems Reviewed Negative Unless Noted: Yes NPW-Femoqt-Qsywku Hx Patient Social History Alcohol Use: Denies Use Recreational Drug Use: No Smoking Status: Never a Smoker 2nd Hand Smoke Exposure: No Recent Foreign Travel: No Recent Infectious Disease Expo: No Hospitalization with Isolation: Denies Immunizations Up To Date Date of Pneumonia Vaccine: Jan 22, 2013 Date of Influenza Vaccine: Jan 17, 2020 Past Medical History PMH As described under Assessment. Family Medical History Family Medical History: Does not report fam h/o early CAD or SCD Allergies and Home Medications Allergies Coded Allergies: Penicillins (Verified Allergy, Unknown, 01/23/20) cefaclor (Verified Allergy, Unknown, 10/14/07) Home Medications Allopurinol 300 Mg Tablet, 300 MG PO DAILY, (Reported) Benzonatate 100 Mg Capsule, 100 MG PO Q6H PRN for COUGH Prescribed by: CATHERINE NAVARRO on 12/13/19 2340 D-Methorphan Hb/P-Epd HCl/Bpm 118 Ml Syrup, 5 ML PO Q6H PRN for CONGESTION Prescribed by: SARAH HIDALGO on 07/27/187 Levofloxacin 750 Mg Tablet, 750 MG PO DAILY Prescribed by: CATHERINE NAVARRO on 12/13/19 2340 Patient Home Medication List Home Medication List Reviewed: Yes Physical Exam-Cardiology Physical Exam Vital Signs/I&O 01/23/20 01/23/20 01/23/20 01/23/20 02:45 04:24 05:30 05:45 Temp 36.3 37.0 36.4 Pulse 135 122 129 118 Resp 24 20 14 21 B/P (MAP) 130/104 (113) 134/95 (108) 127/97 (108) 130/90 Pulse Ox 95 97 93 O2 Delivery Room Air Nasal Cannula Nasal Cannula Nasal Cannula O2 Flow Rate 2.00 2.00 2.00 01/23/20 01/23/20 01/23/20 01/23/20 05:45 06:14 08:10 08:15 Temp 36.7 Pulse 124 125 Resp 20 B/P (MAP) 126/93 (104) Pulse Ox 97 O2 Delivery Nasal Cannula Nasal Cannula Nasal Cannula O2 Flow Rate 2.00 2.00 2.00 01/23/20 01/23/20 01/23/20 08:17 11:59 13:35 Temp 36.4 37.0 Pulse 124 131 140 Resp 20 B/P (MAP) 123/91 (102) Pulse Ox 94 94 O2 Delivery Nasal Cannula O2 Flow Rate 2.00 FiO2 28 Capillary Refill : Less Than 3 Seconds Constitutional: AAO x 3, well-developed, well-nourished HEENT: EOMI, hearing is well preserved; No xanthelasmas are seen Neck: carotid pulses are 2 + bilaterally, with good upstrokes Respiratory: No accessory muscle use; other (fair to good air entry, diminished at the bases) Cardiovascular: S1 and S2, systolic murmur (faint JESSICA at card base) Gastrointestinal: No tender; soft; No guarding, No rebound; audible bowel sounds Extremities: No clubbing, No cyanosis, No significant edema Neurologic/Psychiatric: oriented x 3, other (moves all limbs equally) Skin: No rash on exposed areas, No ulcerations on exposed areas Data Review Labs Laboratory Tests 01/23/20 02:50: White Blood Count 10.6, Red Blood Count 4.45, Hemoglobin 12.5, Hematocrit 39, Mean Corpuscular Volume 87, Mean Corpuscular Hemoglobin 28, Mean Corpuscular Hemoglobin Concent 32, Red Cell Distribution Width 14.0, Platelet Count 266, Mean Platelet Volume 8.7L, Immature Granulocyte % (Auto) 0, Neutrophils (%) (Auto) 64, Lymphocytes (%) (Auto) 26, Monocytes (%) (Auto) 7, Eosinophils (%) (Auto) 3, Basophils (%) (Auto) 1, Neutrophils # (Auto) 6.8, Lymphocytes # (Auto) 2.7, Monocytes # (Auto) 0.7, Eosinophils # (Auto) 0.3, Basophils # (Auto) 0.1, Immature Granulocyte # (Auto) 0.0, D-Dimer 2.24H, Sodium Level 141, Potassium Level 3.7, Chloride Level 107, Carbon Dioxide Level 22, Anion Gap 12, Blood Urea Nitrogen 17, Creatinine 1.51H, Estimat Glomerular Filtration Rate 40, BUN/Creatinine Ratio 11, Glucose Level 95, Calcium Level 8.8, Corrected Calcium 9.0, Total Bilirubin 1.5H, Aspartate Amino Transf (AST/SGOT) 16, Alanine Aminotransferase (ALT/SGPT) 28, Alkaline Phosphatase 56, Troponin I 0.034H, C- Reactive Protein High Sensitivity 1.19H, B-Type Natriuretic Peptide 497.0H, Total Protein 6.7, Albumin 3.8, Procalcitonin 0.05, Thyroid Stimulating Hormone (TSH) 3.41 01/23/20 03:34: Urine Color YELLOW, Urine Clarity CLEAR, Urine pH 5.5, Urine Specific Barto 1.020, Urine Protein NEGATIVE, Urine Glucose (UA) NEGATIVE, Urine Ketones NEGATIVE, Urine Nitrite NEGATIVE, Urine Bilirubin NEGATIVE, Urine Urobilinogen 0.2, Urine Leukocyte Esterase TRACEH, Urine RBC (Auto) NEGATIVE, Urine RBC NONE, Urine WBC NONE, Urine Squamous Epithelial Cells 2-5, Urine Crystals NONE, Urine Bacteria NEGATIVE, Urine Casts NONE, Urine Mucus NEGATIVE, Urine Culture Indicat ed NO 01/23/20 04:32: Coronavirus 2019 (KEN) Negative A/P-Cardiology Assessment/Admission Diagnosis Prob R lower lobe pneumonia of undetermined etiology Vol overload vs ac diastolic CHF Chest discomfort likely noncardiac. Minimal troponin elevation due to reasons noted above. No evidence of type I AL Discussion and Recomendations * iv diuretics today * BB * Monitor labs * Management of pneumonia / resp tract infection is with the [facility] Clinical Quality Measures DVT/VTE Risk/Contraindication: Risk Factor Score Per Nursin RFS Level Per Nursing on Admit: 2=Moderate BRETT GALLAGHER MD FACP FAC CCDS Jan 23, 2020 14:22
[2020-01-23] MEDS: dexAMETHasone 6 MG TAB (DECADRON) PO SCH (14:40)
--- NOTE | 2020-01-23 15:45 | NUR ---
PT ARRIVED BACK TO FLOOR VIA WC, DENIES NEEDS AT THIS TIME. WILL CONTINUE TO MONITOR
--- NOTE | 2020-01-23 16:03 | Diagnostic Imaging Report ---
INDICATION: Dyspnea and tachycardia. DETAILS OF PROCEDURE: Patient was administered 5.1 mCi technetium-99m MAA intravenously and imaging over the chest was performed at multiple obliquities. There is homogeneous perfusion of both lungs. No pleural-based perfusion defects are identified. IMPRESSION: Normal perfusion lung scan. Dictated by: Dictated on workstation # [id number]
[2020-01-23] MEDS: ENOXAPARIN 100 MG/1 ML (LOVENOX) SYR SC SCH (16:57)
[2020-01-23] MEDS ORDERED: DIPH25CA79 PO (17:49)
[2020-01-23] MEDS ORDERED: BUDE10.2 INH (17:49)
[2020-01-23] MEDS ORDERED: ACET-2267 PO (17:49)
--- NOTE | 2020-01-23 17:50 | NUR ---
SPOKE WITH THE PT (I CALLED HER ROOM PHONE) AND WENT THRU THE EXT MED HISTORY TO COMPLETE THE MED REC ACCORDING TO THE PT THE ONLY PRESCRIPTION MEDS SHE IS CURRENTLY TAKING ARE ALLOPURINOL AND SYMBICORT- THE PT HAS FINISHED THE ANTIBIOTIC AND STEROID THERAPY OTC MEDS: TYLENOL BENADRYL
[2020-01-24] VITALS (18 sets, daily range): BP systolic 98–124; BP diastolic 61–81
[2020-01-24] MEDS: RT-ALBUTEROL INHALER HFA (VENTOLIN HFA) 18 GM IH SCH ×4 (01:41→20:41)
[2020-01-24] MEDS: ENOXAPARIN 100 MG/1 ML (LOVENOX) SYR SC SCH (04:30)
[2020-01-24 05:52] LABS: POTASSIUM 4.3 MMOL/L (3.6-5.0)
[2020-01-24 05:53] LABS: CALCIUM 9.1 MG/DL (8.5-10.1)
[2020-01-24 05:57] LABS: CREATININE SERUM 1.44 MG/DL (0.60-1.30); HEMOGLOBIN 12.2 g/dL (11.5-16.0); MEAN PLATELET VOLUME 9.4 fL (9.0-12.2); WHITE BLOOD COUNT 18.6 10^3/uL (4.3-11.0)
[2020-01-24] MEDS: dexAMETHasone 6 MG TAB (DECADRON) PO SCH (06:05)
[2020-01-24] MEDS ORDERED: meTOproloL SUCCINATE 50 MG (TOPROL XL) TAB PO SCH (09:00)
--- NOTE | 2020-01-24 10:04 | Cardiology Progress Note ---
Subjective Date Seen by Provider: Jan 24, 2020 Time Seen by Provider: 10:04 Subjective/Events-last exam Patient is a 34 y/o female with hx of CKD. Presented to the ER with complaints of chest pain and dyspnea awakening her from sleep last night. Reports recent diagnosis of bronchitis several weeks ago. Reports ongoing dypsnea and nonproductive cough. Reports orthopnea and complaining of generalized fatigue and malaise since November. Denies any active chest pain. Denies any F/C/NS. Denies dizziness or lightheadedness. No ETOH or illicit drug use. Denies any hx of CAD or CHF. Review of Systems General: No Chills, No Night Sweats; Fatigue; No Malaise, No Appetite, No Other HEENT: No Head Aches, No Visual Changes, No Eye Pain, No Ear Pain, No Dysphasia, No Sinus Congestion, No Post Nasal Drip, No Sore Throat, No Other Pulmonary: No Dyspnea, No Cough, No Pleuritic Chest Pain, No Other Cardiovascular: No: Chest Pain, Palpitations, Orthopnea, Paroxysmal Noc. Dyspnea, Edema, Lt Headedness, Other Objective-Cardiology Exam Last Set of Vital Signs Vital Signs 01/23/20 01/24/20 01/24/20 01/24/20 08:17 08:00 14:20 14:40 Temp 36.5 Pulse 124 Resp 23 B/P (MAP) 105/74 (84) Pulse Ox 93 O2 Delivery Room Air O2 Flow Rate 2.00 FiO2 28 Capillary Refill : Less Than 3 SecondsLess Than 3 Seconds I&O Intake and Output 01/24/20 00:00 Intake Total 4133 ml Output Total 2800 ml Balance 1333 ml Intake Oral 3133 ml IV Total 1000 ml Output Urine Total 2800 ml Daily Weight Change No No General: Alert, Oriented X3, Cooperative HEENT: Atraumatic, PERRLA Neck: Supple, No JVD, No Thyromegaly Lungs: Clear to Auscultation, Normal Air Movement Heart: Normal S1, Normal S2, Other (tachycardic) Abdomen: Normal Bowel Sounds, Soft, No Tenderness, No Hepatosplenomegaly, No Masses Extremities: No Edema, Normal Pulses Skin: No Rashes, No Significant Lesion Neuro: Normal Speech, Cranial Nerves 3-12 NL Psych/Mental Status: Mental Status NL, Mood NL Results Lab Laboratory Tests 01/24/20 05:03 A/P-Cardiology Admission Diagnosis Chest pain CHF Dyspnea CKD Assessment/Plan Chest pain, nonspecific etiology, mildly elevated troponin, repeat troponin was negative. EKG showing LVH with sinus tachycardia. 2D Echo done this morning showing EF 30%. Planning for [facility] for further evaluation. Dyspnea on exertion, workup as discussed above, COVID negative Acute LV systolic heart failure, unknown etiology, ischemic vs nonischemic cardiomyopathy, planning for [facility] Sinus tachycardia, started on beta pito, continue to monitor. History of recent bronchitis, questionable RLL infiltrate on CXR, Lung scan done yesterday was negative CKD, follows with nephrology in [facility] of gout Thank you for allowing us to participate in the management of Ms Perera. This is Samanta Cooper PA-C, as a scribe for Dr. Torres. Patient was seen and evaluated with Samanta, examination performed, management plan was discussed, agree with the current scribed note, I made few changes to the note using Italic font Patient underwent cardiac catheterization showing nonischemic cardiomyopathy She is borderline hypotensive, I am decreasing beta pito dose to metoprolol 12.5 mg twice a day and add Entresto with close monitoring to her renal function Planning to initiate LifeVest Clinical Quality Measures DVT/VTE Risk/Contraindication: Risk Factor Score Per Nursin RFS Level Per Nursing on Admit: 2=Moderate SAMANTA SIDDIQUI Jan 24, 2020 10:04 GENA TORRES MD Jan 24, 2020 15:31
[2020-01-24] MEDS ORDERED: HEParin (CATH LAB) 2,000 ML IV ONE (10:21)
[2020-01-24] MEDS ORDERED: NS IV 1000 ML 1,000 ML ONE (10:21)
[2020-01-24] MEDS ORDERED: LIDOCAINE 1% INJ 20 ML 20 ML VIAL ONE (10:21)
[2020-01-24] MEDS ORDERED: MIDAZOLAM 5 MG/5 ML (VERSED) VIAL ONE (10:53)
[2020-01-24] MEDS ORDERED: fentaNYL INJECTION 100 MCG/2 ML AMP ONE (10:54)
[2020-01-24] MEDS ORDERED: VERAPAMIL 5 MG/2 ML (CALAN) VIAL IV ONE (11:38)
[2020-01-24] MEDS ORDERED: NITRO DRIP 25000 MCG/D5W 250 ML IV ONE (11:38)
[2020-01-24] MEDS ORDERED: HEParin 1000 UNIT/ML (10ML VIAL) FOR BOLUS ONE (11:38)
[2020-01-24] MEDS ORDERED: PATIENT MAY USE OWN MEDS, ALL PO SCH (12:15)
[2020-01-24] MEDS ORDERED: NS IV 1000 ML 1,000 ML IV SCH (12:15)
--- NOTE | 2020-01-24 12:20 | Cardiac Cath Report ---
Cardiac Cath Report Physician (s)/Burglar Alarm Installer (s) Physician GENA FRANCISCO MD Pre-Procedure Diagnosis Pre-Procedure Diagnosis: congestive heart failure Post-Procedure Note Procedure Start Date: Jan 24, 2020 Name of Procedure: Left heart catheterization Findings/Procedure Note PROCEDURE NOTE: 34-year-old lady admitted with shortness of breath, decompensated congestive heart failure left ventricular systolic dysfunction, decided to proceed with coronary angiogram to evaluate for any underlying causes for her heart failure. After explaining the procedure to the patient, all pros and cons were explained, all questions were answered. The patient signed the consent and then she was placed on the cardiac catheterization laboratory. Groin was prepped SL fashion local anesthesia was used. Sheath placed in the artery. Sarthak right and left catheter were used to access the coronary system. Sarthak right was use to prolapse of the left ventricular cavity and pressure was measured Left ventriculogram was not done, pressure was measured Aortic arch angiogram was not done At the end of the procedure the sheath was removed. Closure device FINDINGS: Hemodynamics LV 90/33, end-diastolic pressure of 33 Aorta 88/66 mean of 75 ANATOMY: Left Main is free of obstructive disease Left Anterior Descending is free of obstructive disease Left Circumflex is free of obstructive disease Right Coronary Artery is free of obstructive disease LV Gram was not done, pressure was measured CONCLUSION: 1. Nonischemic cardiomyopathy, elevated left ventricular end-diastolic pressure 2. Mild coronary artery disease with no significant obstructive disease DISCUSSION AND RECOMMENDATION: Medical therapy will be maximized, patient will have a LifeVest and will evaluate tolerance and response Anesthesia Type: Conscious Sedation Estimated blood loss (mL): 15 ml Contrast Amount: 18 ml Total Radiation Dose: 349 mGy Post-Procedure Diagnosis Post-operative diagnosis: Congestive heart failure, acute left ventricular systolic dysfunction, nonischemic cardiomyopathy Tachycardia Dyspnea Hypotension (1) Person under investigation for COVID-19 (2) Tachycardia (3) Dyspnea Qualifiers: Qualified Codes: R06.02 - Shortness of breath GENA FRANCISCO MD Jan 24, 2020 12:20
--- NOTE | 2020-01-24 13:42 | Progress Note - Hospitalist ---
TODJARROD MED STUDENT 01/24/20 1342: Subjective HPI/CC On Admission Date Seen by Provider: Jan 24, 2020 Time Seen by Provider: 08:25 Subjective/Events-last exam Patient states she is breathing much easier and can take a full breath. Only current complaint is mild pain over mid-upper chest with deep inspiration (states she believes pain is secondary to coughing so often over the last few days). denies any other complaints at this time. Objective Exam Vital Signs Vital Signs Date Time Temp Pulse Resp B/P (MAP) Pulse Ox O2 Delivery O2 Flow Rate FiO2 01/24/20 13:18 120 21 111/81 (91) 95 Nasal Cannula 2.00 01/24/20 08:00 36.5 01/23/20 08:17 28 Capillary Refill : Less Than 3 SecondsLess Than 3 Seconds General Appearance: No Apparent Distress; No Anxious; Obese HEENT: No Photophobia, No Scleral Icterus (L), No Scleral Icterus (R) Neck: Normal Inspection, Non Tender Respiratory: Chest Non Tender, Lungs Clear, Normal Breath Sounds Gastrointestinal: No Organomegaly, No Pulsatile Mass, Non Tender Extremity: Normal Inspection, Non Tender, No Calf Tenderness, No Pedal Edema Neurologic/Psychiatric: Alert, No Motor/Sensory Deficits, Normal Mood/Affect Skin: Normal Color, Warm/Dry Results/Procedures Lab Laboratory Tests 01/24/20 05:03 Patient resulted labs reviewed. Assessment/Plan Assessment and Plan Assess & Plan/Chief Complaint Assessment -Dyspnea -Hypoxia -Hypotension -Sinus Tachycardia -Nonischemic LVH -Elevated BNP -Elevated D-Dimer -EF 30% -Mild CAD without obstruction -Mitral Regurgitation -Right lower lobe Pneumonia -CKD -CHF -Gout -Elevated glucose -Nonischemic LVH -Hx recent bronchitis -Hx gout -Hx recent pneumonia, COVID negative+ Plan -[facility] -IV Lasix -Metoprolol Clinical Quality Measures DVT/VTE Risk/Contraindication: Risk Factor Score Per Nursin RFS Level Per Nursing on Admit: 2=Moderate LISA REDDY DO 01/25/20 0532: Subjective Subjective/Events-last exam Pt feeling much better Had a coughing fit two days ago and a month ago had pneumonia but since that time she has been SOB VQ scan obtained showing no pulmonary emboli Consulted cardiology due to elevated BNP Pt was found to have an echocardiogram ejection fraction of 30%, she will undergo cardiac catheterization today We will continue IV Lasix for volume overload Objective Exam General Appearance: No Apparent Distress, WD/WN, Chronically ill Respiratory: Lungs Clear Cardiovascular: Regular Rate, Rhythm Assessment/Plan Assessment and Plan Assess & Plan/Chief Complaint PNA w/u mostly c/w pulmonary edema Supervisory-Addendum Brief Verification & Attestation Participated in pt care: history, MDM, physical Personally performed: exam, history, MDM, supervision of care Care discussed with: Medical Student Procedures: n/a Results interpretation: Verified all documentation Verification and Attestation of Medical Student E/M Service A medical student performed and documented this service in my presence. I reviewed and verified all information documented by the medical student and made modifications to such information, when appropriate. I personally performed the physical exam and medical decision making. Lisa Reddy, Jan 25, 2020,05:30 JARROD BARON MED STUDENT Jan 24, 2020 13:42 LISA REDDY DO Jan 25, 2020 05:32
--- NOTE | 2020-01-24 15:11 | NUR ---
PT ARRIVED TO FLOOR FROM RECOVERY, R GROIN SITE SOFT/NON-TENDER, RLE WARM/GOOD PEDAL PULSES 2+. PT DENIES NEEDS AT THIS TIME, HOB 30 DEGREES, PT INFORMED OF BEDREST ORDER UNTIL 1640. WILL CONTINUE TO MONITOR
--- NOTE | 2020-01-24 15:18 | NUR ---
CM/SS: Visited with pt as to her plan for discharge and the process of getting her Life Vest from [facility] Plan: Pt is from home and lives with her and children in [place] and will return there Summary: Pt recently returned from the [facility] and is needing to get a Life Vest. Sidney has made contact and needed additional documents. Additional documents are faxed to Sidney at [phone] attn to [facility] - Pt is anticipated to discharge to home on tomorrow. Telephone call to Farrah [phone] with Sidney. She is able to call the pt and talk with her about the process and the vest. Pt cell phone number is verified. This worker will follow up.
--- NOTE | 2020-01-24 15:33 | NUR ---
IDALIA WITH SOCIAL WORK AT BEDSIDE DISCUSSING LIFE VEST ARRANGEMENTS.
[2020-01-24] MEDS: KETOROLAC 15 MG/ML VIAL IVP PRN (15:52)
--- NOTE | 2020-01-24 17:00 | Diagnostic Imaging Report ---
EXAMINATION: Chest 2 view HISTORY: Pneumonia. COMPARISON: 01/23/2020. FINDINGS: There is a left lower lobe airspace opacity consistent with pneumonia. No pneumothorax. There is a small left pleural effusion. Heart is enlarged. IMPRESSION: 1. Small left pleural effusion and left base airspace opacity consistent with pneumonia. Dictated by: Dictated on workstation # [id number]
[2020-01-24 17:35] LABS: BASOPHILS % (AUTO) 0 % (0-10); EOSINOPHILS % (AUTO) 0 % (0-10); HEMATOCRIT 34 % (35-52); HEMOGLOBIN 10.8 g/dL (11.5-16.0); LYMPHOCYTES # (AUTO) 0.6 10^3/uL (1.0-4.0); LYMPHOCYTES % (AUTO) 3 % (12-44); MEAN CORPUSCULAR HEMOGLOBIN 28 pg (25-34); MEAN CORPUSCULAR HGB CONC 32 g/dL (32-36); MEAN CORPUSCULAR VOLUME 89 fL (80-99); MEAN PLATELET VOLUME 9.2 fL (9.0-12.2); MONOCYTES # (AUTO) 0.9 10^3/uL (0.0-1.0); MONOCYTES % (AUTO) 4 % (0-12); NEUTROPHILS # (AUTO) 20.4 10^3/uL (1.8-7.8); NEUTROPHILS % (AUTO) 93 % (42-75); PLATELET COUNT 244 10^3/uL (130-400)
[2020-01-24 17:45] LABS: ALBUMIN 3.5 GM/DL (3.2-4.5); POTASSIUM 4.3 MMOL/L (3.6-5.0)
[2020-01-24 17:46] LABS: CALCIUM 8.9 MG/DL (8.5-10.1)
[2020-01-24 17:47] LABS: TOTAL PROTEIN 6.4 GM/DL (6.4-8.2)
[2020-01-24 17:49] LABS: BILIRUBIN,TOTAL 1.1 MG/DL (0.1-1.0)
[2020-01-24 17:51] LABS: ANISOCYTOSIS SLIGHT; BAND NEUTROPHILS 1 %; BASOPHILS % (MANUAL) 0 %; CREATININE SERUM 1.3 MG/DL (0.60-1.30); EOSINOPHILS % (MANUAL) 0 %; LYMPHOCYTES % (MANUAL) 4 %; MONOCYTES % (MANUAL) 1 %; NEUTROPHILS % (MANUAL) 94 %
[2020-01-24] MEDS: SACUBITRIL/VALSARTAN 24/26 MG (ENTRESTO) TABLET PO SCH (20:36)
[2020-01-24] MEDS ORDERED: meTOprolol TARTRATE 25 MG (LOPRESSOR) TABLET PO SCH (21:00)
--- NOTE | 2020-01-24 21:04 | NUR ---
DOMINIQUE [facility] CALLED TO LET ME KNOW THAT SHE CAN BE HERE TOMORROW 01/24 BETWEEN 8-9 AM FOR LIFE VEST FITTING AND THAT THERE NEEDS TO BE A SECOND PERSON WITH PT FOR EDUCATION PURPOSE. DOMINIQUE PHONE NUMBER [phone]. [employer] NOTIFIED ABOUT THE REQUEST AND TOLD ME SHE IS GOING TO CALLED ME BACK WITH AND ANSWERS. LEORA LANG AGREED TO A SECOND PERSON WITH PT. CALLED DOMINIQUE BACK AND LET HER KNOW THAT PT'S CAN BE HERE AT THE TIME.
[2020-01-25] VITALS: BP 101/69
[2020-01-25] MEDS: RT-ALBUTEROL INHALER HFA (VENTOLIN HFA) 18 GM IH SCH ×4 (02:18→21:29)
[2020-01-25 04:00] VITALS: BP 106/68
[2020-01-25 06:06] LABS: BASOPHILS % (AUTO) 0 % (0-10); EOSINOPHILS % (AUTO) 0 % (0-10); HEMATOCRIT 36 % (35-52); LYMPHOCYTES % (AUTO) 5 % (12-44); MEAN CORPUSCULAR HEMOGLOBIN 28 pg (25-34); MEAN CORPUSCULAR HGB CONC 31 g/dL (32-36); MEAN CORPUSCULAR VOLUME 90 fL (80-99); MEAN PLATELET VOLUME 9.4 fL (9.0-12.2); MONOCYTES # (AUTO) 1.1 10^3/uL (0.0-1.0); MONOCYTES % (AUTO) 5 % (0-12); NEUTROPHILS # (AUTO) 19.6 10^3/uL (1.8-7.8); NEUTROPHILS % (AUTO) 90 % (42-75); PLATELET COUNT 286 10^3/uL (130-400); WHITE BLOOD COUNT 21.9 10^3/uL (4.3-11.0)
[2020-01-25 06:19] LABS: ALBUMIN 3.4 GM/DL (3.2-4.5); POTASSIUM 4.4 MMOL/L (3.6-5.0)
[2020-01-25 06:20] LABS: CALCIUM 8.7 MG/DL (8.5-10.1)
[2020-01-25 06:22] LABS: TOTAL PROTEIN 6.3 GM/DL (6.4-8.2)
[2020-01-25 06:23] LABS: BILIRUBIN,TOTAL 0.9 MG/DL (0.1-1.0)
[2020-01-25 06:25] LABS: CREATININE SERUM 1.2 MG/DL (0.60-1.30)
[2020-01-25] MEDS ORDERED: FUROSEMIDE 40 MG/4 ML INJ (LASIX) IVP NR (06:30)
[2020-01-25] MEDS: CEFEPIME INJECTION 1,000 MG in WATER (STERILE) FOR INJECTION 10 ML IV SCH ×3 (06:31→18:23)
[2020-01-25] MEDS: dexAMETHasone 6 MG TAB (DECADRON) PO SCH (06:31)
--- NOTE | 2020-01-25 06:39 | NUR ---
PCT FOUND BED BUGS ON THE BED. PT NOW ON CONTACT PRECAUTIONS.
[2020-01-25] MEDS ORDERED: AZITHROMYCIN INJECTION 500 MG in NS (IVPB) 250 ML IV SCH (07:00)
[2020-01-25 08:00] VITALS: BP 87/58
[2020-01-25] MEDS ORDERED: NS IV 1000 ML 1,000 ML ONE (08:15)
--- NOTE | 2020-01-25 08:19 | Cardiology Progress Note ---
Subjective Date Seen by Provider: Jan 25, 2020 Time Seen by Provider: 08:15 Subjective/Events-last exam Denies any chest pain, reports mild dyspnea with exertion. Noted to be tachycardic. Review of Systems General: No Chills, No Night Sweats; Fatigue, Malaise; No Appetite, No Other HEENT: No Head Aches, No Visual Changes, No Eye Pain, No Ear Pain, No Dysphasia, No Sinus Congestion, No Post Nasal Drip, No Sore Throat, No Other Pulmonary: No Dyspnea, No Cough, No Pleuritic Chest Pain, No Other Cardiovascular: No: Chest Pain, Palpitations, Orthopnea, Paroxysmal Noc. Dyspnea, Edema, Lt Headedness, Other Focused Exam Lactate Level 01/24/20 17:25: Lactic Acid Level 1.62 01/25/20 06:20: Lactic Acid Level 0.94 Lactic Acid Level Objective-Cardiology Exam Last Set of Vital Signs Vital Signs 01/23/20 01/24/20 01/25/20 08:17 14:20 16:45 Temp 36.8 Pulse 116 Resp 20 B/P (MAP) 101/72 (82) Pulse Ox 97 O2 Delivery Room Air O2 Flow Rate 2.00 FiO2 28 Capillary Refill : Less Than 3 SecondsLess Than 3 Seconds I&O Intake and Output 01/25/20 00:00 Intake Total 3295 ml Output Total 4200 ml Balance -905 ml Intake Oral 2295 ml IV Total 1000 ml Output Urine Total 4200 ml General: Alert, Oriented X3, Cooperative HEENT: Atraumatic, PERRLA Neck: Supple, No JVD, No Thyromegaly Lungs: Clear to Auscultation, Normal Air Movement Heart: Normal S1, Normal S2, Other (tachycardic) Abdomen: Normal Bowel Sounds, Soft, No Tenderness, No Hepatosplenomegaly, No Masses Extremities: No Edema, Normal Pulses Skin: No Rashes, No Significant Lesion Neuro: Normal Speech, Cranial Nerves 3-12 NL Psych/Mental Status: Mental Status NL, Mood NL Results Lab Laboratory Tests 01/24/20 17:25 01/25/20 05:19 A/P-Cardiology Admission Diagnosis Chest pain CHF Dyspnea CKD Assessment/Plan Chest pain, nonspecific etiology, mildly elevated troponin, repeat troponin was negative. EKG showing LVH with sinus tachycardia. 2D Echo showing EF 30%. Underwent cardiac catheterization yesterday revealing nonobstructive disease. CHF, acute LV systolic dysfunction, nonischemic cardiomyopathy with EF 30%. Started on Entresto, Lopressor. Life vest ordered. Dyspnea on exertion, workup as discussed above, COVID negative Sinus tachycardia, I will increase Lopressor with parameters, continue to monitor.. History of recent bronchitis, RLL infiltrate on CXR, on antibiotics, management per medical services. CKD, follows with nephrology in [facility] of gout Bed bug infestation, on isolation precautions Patient was seen and evaluated with Samanta, examination performed, management plan was discussed, agree with the current scribed note, I made few changes to the note using Italic font Patient has been doing well borderline hypotensive, I will change Entresto to losartan and evaluate tolerance and response Had an episode of severe hypotension this morning probably secondary to Zithromax. Received IV fluid, feeling better. Clinical Quality Measures DVT/VTE Risk/Contraindication: Risk Factor Score Per Nursin RFS Level Per Nursing on Admit: 2=Moderate SAMANTA SIDDIQUI Jan 25, 2020 8:19 am GENA FRANCISCO MD Jan 25, 2020 4:47 pm
--- NOTE | 2020-01-25 08:30 | NUR ---
Called to room by aide. Unable to get BP on pt. Pt complaining of back pain and dizziness. Unable to palpate pulse, but pt A/O X4. House Sup at bedside as well. Notified Dr. Torres, ordered to give 1L NS bolus. Notified Dr. Santos as well. Notified pharmacy of reaction to Zithromax. Will continue to closely monitor pt.
[2020-01-25] MEDS ORDERED: meTOprolol TARTRATE 25 MG (LOPRESSOR) TABLET PO SCH (09:00)
[2020-01-25] MEDS: SACUBITRIL/VALSARTAN 24/26 MG (ENTRESTO) TABLET PO SCH ×2 (09:55→10:00)
[2020-01-25] MEDS: ENOXAPARIN 40 MG/0.4 ML (LOVENOX) SYR SQ SCH (09:55)
[2020-01-25] MEDS: meTOprolol TARTRATE 25 MG (LOPRESSOR) TABLET PO SCH ×2 (09:56→20:52)
[2020-01-25] MEDS: KETOROLAC 15 MG/ML VIAL IVP PRN (09:58)
[2020-01-25 12:00] VITALS: BP 99/71
--- NOTE | 2020-01-25 14:24 | Physical Therapy Progress Note ---
Therapy Progress Note PT eval orders received. Patient is in bed and rouses easily. Patient states she has been going to the restroom on her own and is feeling much better and no longer feels weak. Patient demonstrates and walks about the room without difficulty or LOB or unsteadiness. Patient appears to be independent with mobility at this time. No PT eval performed, instructed patient to contact nurse if she feels the need for PT. MIKIE HUDSON PT Jan 25, 2020 14:24
--- NOTE | 2020-01-25 15:07 | Progress Note - Hospitalist ---
JARROD BARON MED STUDENT 01/25/20 1507: Subjective HPI/CC On Admission Date Seen by Provider: Jan 25, 2020 Time Seen by Provider: 10:00 Subjective/Events-last exam Patient states she was not experiencing symptoms until this morning shortly after receiving Azithromycin at which point she felt nauseous, experienced diarrhea, visual disturbances, dizziness and muscle cramps. Nursing staff were unable to measure a BP and called Dr. Torres who advised discontinuing Azithromycin and initiating a fluid bolus, patient reportedly felt rapid relief of symptoms; subsequent BP was taken at 88/60. Patient reports no current complaints and states she feels fine, denies CP, SOB, abdominal pain or headache presently. Focused Exam Lactate Level 01/24/20 17:25: Lactic Acid Level 1.62 01/25/20 06:20: Lactic Acid Level 0.94 Objective Exam Vital Signs Vital Signs Date Time Temp Pulse Resp B/P (MAP) Pulse Ox O2 Delivery O2 Flow Rate FiO2 01/25/20 13:03 119 01/25/20 12:00 36.5 18 99/71 (80) 93 Room Air 01/24/20 14:20 2.00 01/23/20 08:17 28 Capillary Refill : Less Than 3 SecondsLess Than 3 Seconds General Appearance: No Apparent Distress, WD/WN HEENT: No Scleral Icterus (L), No Scleral Icterus (R) Neck: Full Range of Motion, Normal Inspection, Non Tender Respiratory: Lungs Clear, Normal Breath Sounds, No Accessory Muscle Use Cardiovascular: Regular Rate, Rhythm, No Murmur; No Diastolic Murmur Gastrointestinal: No Organomegaly, No Pulsatile Mass, Non Tender Back: Normal Inspection Extremity: Normal Inspection, Normal Range of Motion, Non Tender Neurologic/Psychiatric: Alert, No Motor/Sensory Deficits; No Aphasia, No Disoriented Skin: Normal Color, Warm/Dry Results/Procedures Lab Laboratory Tests 01/24/20 17:25 01/25/20 05:19 Patient resulted labs reviewed. Assessment/Plan Assessment and Plan Assess & Plan/Chief Complaint Assessment -Dyspnea -Hypoxia -Hypotension -Sinus Tachycardia -Nonischemic LVH -Elevated BNP -Elevated D-Dimer -EF 30% -Mild CAD without obstruction -Mitral Regurgitation -Right lower lobe Pneumonia -CKD -CHF -Gout -Elevated glucose -Nonischemic LVH -Hx recent bronchitis -Hx gout -Hx recent pneumonia, COVID negative+ Plan -IV Cefepime -Maintain IV Lasix -Monitor tachycardia -Consult PT/OT Recommendations per cardiology: -Life vest ordered, increase Lopressor, start on Entresto Clinical Quality Measures DVT/VTE Risk/Contraindication: Risk Factor Score Per Nursin RFS Level Per Nursing on Admit: 2=Moderate LISA REDDY DO 01/25/20 2303: Supervisory-Addendum Brief Verification & Attestation Participated in pt care: history, MDM, physical Personally performed: exam, history, MDM, supervision of care Care discussed with: Medical Student Procedures: n/a Results interpretation: Verified all documentation Verification and Attestation of Medical Student E/M Service A medical student performed and documented this service in my presence. I reviewed and verified all information documented by the medical student and made modifications to such information, when appropriate. I personally performed the physical exam and medical decision making. Lisa Reddy, Jan 25, 2020,23:03 JARROD BARON MED STUDENT Jan 25, 2020 15:07 LISA REDDY DO Jan 25, 2020 23:03
--- NOTE | 2020-01-25 15:32 | Occupational Therapy Eval ---
OT Evaluation-General/PLF Medical Diagnosis Admission Date Jan 23, 2020 at 04:42 Medical Diagnosis: Chronic cough, bronchitis, CHF Onset Date: Jan 23, 2020 Therapy Diagnosis Therapy Diagnosis: Weakness Height/Weight Height (Feet): 5 Height (Inches): 4.50 Weight (Pounds): 243 Precautions Precautions/Isolations: Contact Isolation Weight Bear Status Weight Bearing Restriction: Weight Bearing/Tolerated Referral Physician: Dr. Santos Referral Reason: Activity Tolerance, Self Care, Evaluation/Treatment, Strengthening/ROM Medical History Additional Medical History Gout, pneumonia, EF 30% Current History Pt. has been fit for Life Vest. Reviewed History: Yes Social History Home: Single Level Current Living Status: Children ADL-Prior Level of Function SCALE: Activities may be completed with or without assistive devices. 0-Fxvmtiqnft-utpkkfk completes the activity by him/herself with no assistance from a helper. 5-Set-up or Clean-up Assistance-helper sets up or cleans up; patient completes activity. [place] assists only prior to or following the activity. 4-Supervision or Touching Assistance-helper provides verbal cues and/or touching/steadying and/or contact guard assistance as patient completes activity. Assistance may be provided throughout the activity or intermittently. 3-Partial/Moderate Assistance-helper does LESS THAN HALF the effort. [place] lifts, holds or supports trunk or limbs, but provides less than half the effort. 2-Substantial/Maximal Assistance-helper does MORE THAN HALF the effort. [place] lifts or holds trunk or limbs and provides more than half the effort. 9-Lyzajomis-nbtrdm does ALL the effort. Patient does none of the effort to complete the activity. Or, the assistance of 2 or more helpers is required for the patient to complete the activity. If activity was not attempted, code reason: 7-Patient Refused. 9-Not Applicable-not attempted and the patient did not perform the activity befo re the current illness, exacerbation or injury. 10-Not Attempted due to Environmental Limitations-(lack of equipment, weather re straints, etc.). 88-Not Attempted due to Medical Conditions or Safety Concerns. ADL PLOF Comments Pt. was independent with all tasks. Pt. is mother of 3 children. They are ages 13, 12, and 9. She states that she was ill in November, and since then has had a cough and was diagnosed with Bronchitis. She came to ER with SOA and it was found that she has CHF. She has an EF of 30% and has been fit for a life vest. On evaluation, pt. reports that she had an allergic reaction to a medicat ion, and that is what has caused her heart issues. Self Care: Independent Functional Cognition: Independent OT Current Status Subjective No pain reported. Pt. states that she is feeling much better. Mental Status/Objective Patient Orientation: Person, Place, Time, Situation ADL-Treatment Eating (QC): 6 On/Off Footwear (QC): 6 (per pt.) Toileting Hygiene (QC): 6 (per pt) Other Treatments OT order received, chart reviewed. When OT entered room, pt. was up ad ricarda in her room and straightening up her bed. OT talked with pt. about how she is feeling, and any issues she is having currently. Pt. reports that she is taking self to the bathroom, and is having no difficulty with cleansing self. She is not having difficulty donning slipper socks, and plans to take a shower later. She did not want to do one at this time. Pt. does not need a walker at this time as well, and states that she is having no balance issues. She reports that she is feeling better overall, and has been fit for a life vest. OT talked with pt. about energy conservation techniques, and taking her time when she does go home. She verbalizes understanding. Pt. does not need OT services at this time, and is demonstrating physical issues pertinent to her current condition, (EF- 30%). Education OT Patient Education: Correct positioning, Modified ADL techniques, Progress toward Goal/Update tx plan, Purpose of tx/functional activities, Reviewed precautions, Rehab process, Transfer techniques Teaching Recipient: Patient Teaching Methods: Demonstration, Discussion Response to Teaching: Verbalize Understanding, Return Demonstration OT General Store Manager Goals Intermediate Goals Time Frame: Jan 25, 2020 Additional Goals: 1-Demonstrate ADL Tasks, 2-Verbalize Understanding 1=Demonstrate adherence to instructed precautions during ADL tasks. 2=Patient will verbalize/demonstrate understanding of assistive devices/modifications for ADL. 3=Patient will improve strength/tolerance for activity to enable patient to perform ADL's. OT Education/Plan Problem List/Assessment Assessment: No Skilled OT Needs ID'd Discharge Recommendations Plan/Recommendations: Discharge/Goals Met Therapy Discharge Recommendati: Home & Family Treatment Plan/Plan of Care Treatment,Training & Education: Yes Plan of Care: OTHER Treatment Duration: Jan 25, 2020 Frequency: 1 time per week Estimated Hrs Per Day: .25 hour per day Agreement: Yes Rehab Potential: Good Time/GCodes Start Time: 14:05 Stop Time: 14:15 Total Time Billed (hr/min): 10 Billed Treatment Time 1, SHANTELL MCDERMOTT OT Jan 25, 2020 15:32
--- NOTE | 2020-01-25 15:38 | NUR ---
CM/SS: Visited with pt as to her Life Vest and her plan for discharge Plan: When deemed appropriately, Pt to return home with her life vest, no other identified services Summary: Pt reports she is feeling better, and that she had a reaction to the medication that she had taken. Pt reports getting her life vest fitted today and she and her had teaching on it. She does report that she should be able to go home tomorrow. Pt reports her and cousin are taking care of the children. Pt has three special needs children, ages 9, 12, and 13. One of the children is Autistic as well. They are currently managing at home with the children. Pt does not work and they currently collect disability on the spouse and children. She reports they are managing at this time. She feels comfortable about having the life vest. This worker will follow up.
[2020-01-25 16:45] VITALS: BP 101/72
[2020-01-25 20:47] VITALS: BP 95/62
[2020-01-26 00:33] VITALS: BP 108/60
[2020-01-26] MEDS: CEFEPIME INJECTION 1,000 MG in WATER (STERILE) FOR INJECTION 10 ML IV SCH ×3 (00:38→12:19)
[2020-01-26] MEDS: KETOROLAC 15 MG/ML VIAL IVP PRN (01:34)
[2020-01-26] MEDS: RT-ALBUTEROL INHALER HFA (VENTOLIN HFA) 18 GM IH SCH ×2 (01:53→10:46)
--- NOTE | 2020-01-26 02:23 | NUR ---
0125-PT WALKING THE HALLS 0134-PT REPORTS RIGHT SHOULDER PAIN 6/10 NUMERICALLY WITH DEEP BREATHS & COUGHING, PT STATES SHE IS SOA & IS REQUESTING PRN O2 & INHALER. PT REPORTS THAT THIS PAIN OCCURS OCCASIONALLY SINCE BEING DIAGNOSED WITH PNEUMONIA, PT O2 ON RA 90%-1L [address] ON PT, RESPIRATIONS 22 PER MINUTE, HR 126, PRN ALBUTEROL INHALER GIVEN, PRN TORADOL GIVEN. 0136-SPO2 95% HR 122 PER MINUTE 0150-PT SITTING UP ON SIDE OF BED REQUESTING A CUP OF HOT TEA WHICH WAS PROVIDED 0210-PT SITTING UP IN RECLINER, OXYGEN OFF, PT STATES THAT SHE WENT TO THE RESTROOM AND COUGHED UP A "MEDIUM" AMOUNT OF CLEAR SPUTUM. PT STATES THAT SHE FEELS BETTER & DENIES PAIN AT THIS TIME. PT STATES THAT SHE THINKS WALKING THE HALLS WAS TO MUCH ACTIVITY AT THIS TIME FOR HER. RESPIRATIONS 18, HR 120, SPO2 SAT 95%.
[2020-01-26 04:28] VITALS: BP 120/78
[2020-01-26 06:28] LABS: BASOPHILS % (AUTO) 0 % (0-10); EOSINOPHILS % (AUTO) 0 % (0-10); HEMATOCRIT 36 % (35-52); HEMOGLOBIN 11.2 g/dL (11.5-16.0); LYMPHOCYTES # (AUTO) 1.7 10^3/uL (1.0-4.0); LYMPHOCYTES % (AUTO) 9 % (12-44); MEAN CORPUSCULAR HEMOGLOBIN 28 pg (25-34); MEAN CORPUSCULAR HGB CONC 31 g/dL (32-36); MEAN CORPUSCULAR VOLUME 91 fL (80-99); MEAN PLATELET VOLUME 9.6 fL (9.0-12.2); MONOCYTES # (AUTO) 0.8 10^3/uL (0.0-1.0); MONOCYTES % (AUTO) 4 % (0-12); NEUTROPHILS # (AUTO) 15.7 10^3/uL (1.8-7.8); NEUTROPHILS % (AUTO) 86 % (42-75); PLATELET COUNT 294 10^3/uL (130-400); WHITE BLOOD COUNT 18.3 10^3/uL (4.3-11.0)
[2020-01-26 06:49] LABS: ALBUMIN 3.4 GM/DL (3.2-4.5); POTASSIUM 3.9 MMOL/L (3.6-5.0)
[2020-01-26 06:51] LABS: CALCIUM 8.4 MG/DL (8.5-10.1)
[2020-01-26 06:52] LABS: TOTAL PROTEIN 6.2 GM/DL (6.4-8.2)
[2020-01-26 06:55] LABS: CREATININE SERUM 1.29 MG/DL (0.60-1.30)
[2020-01-26 08:00] VITALS: BP 119/93
[2020-01-26] MEDS ORDERED: LOSARTAN 25 MG (COZAAR) TAB PO SCH (09:00)
[2020-01-26] MEDS: meTOprolol TARTRATE 25 MG (LOPRESSOR) TABLET PO SCH (09:22)
[2020-01-26] MEDS: ENOXAPARIN 40 MG/0.4 ML (LOVENOX) SYR SQ SCH (09:23)
--- NOTE | 2020-01-26 11:35 | Cardiology Progress Note ---
Subjective Date Seen by Provider: Jan 26, 2020 Time Seen by Provider: 11:34 Subjective/Events-last exam Patient is sitting comfortably in a chair, feeling better Review of Systems General: No Chills, No Night Sweats, No Fatigue, No Malaise, No Appetite, No Other HEENT: No Head Aches, No Visual Changes, No Eye Pain, No Ear Pain, No Dysphasia, No Sinus Congestion, No Post Nasal Drip, No Sore Throat, No Other Pulmonary: No Dyspnea, No Cough, No Pleuritic Chest Pain, No Other Cardiovascular: No: Chest Pain, Palpitations, Orthopnea, Paroxysmal Noc. Dyspnea, Edema, Lt Headedness, Other Focused Exam Lactate Level 01/24/20 17:25: Lactic Acid Level 1.62 01/25/20 06:20: Lactic Acid Level 0.94 Objective-Cardiology Exam Last Set of Vital Signs Vital Signs 01/23/20 01/26/20 01/26/20 08:17 08:00 10:46 Temp 36.2 Pulse 128 Resp 18 B/P (MAP) 119/93 (102) Pulse Ox 94 O2 Delivery Nasal Cannula O2 Flow Rate 1.00 FiO2 28 Capillary Refill : Less Than 3 SecondsLess Than 3 Seconds I&O Intake and Output 01/26/20 00:00 Intake Total 2420 ml Output Total 2650 ml Balance -230 ml Intake Oral 1660 ml IV Total 760 ml Output Urine Total 2650 ml # Voids 2 # Bowel Movements 2 General: Alert, Oriented X3, Cooperative HEENT: Atraumatic, PERRLA Neck: Supple, No JVD, No Thyromegaly Lungs: Clear to Auscultation, Normal Air Movement Heart: Normal S1, Normal S2, Other (tachycardic) Abdomen: Normal Bowel Sounds, Soft, No Tenderness, No Hepatosplenomegaly, No Masses Extremities: No Edema, Normal Pulses Skin: No Rashes, No Significant Lesion Neuro: Normal Speech, Cranial Nerves 3-12 NL Psych/Mental Status: Mental Status NL, Mood NL Results Lab Laboratory Tests 01/26/20 05:50 A/P-Cardiology Admission Diagnosis Chest pain CHF Dyspnea CKD Assessment/Plan Chest pain, nonspecific etiology, mildly elevated troponin, repeat troponin was negative. EKG showing LVH with sinus tachycardia. 2D Echo showing EF 30%. Underwent cardiac catheterization yesterday revealing nonobstructive disease. CHF, acute LV systolic dysfunction, nonischemic cardiomyopathy with EF 30%. Started on Entresto, Lopressor. Life vest ordered. Dyspnea on exertion, workup as discussed above, COVID negative Sinus tachycardia, maintained on low-dose beta blockers. Cannot tolerate higher doses due to hypotension History of recent bronchitis, RLL infiltrate on CXR, on antibiotics, management per medical services. CKD, follows with nephrology in [facility] of gout Bed bug infestation, on isolation precautions Clinical Quality Measures DVT/VTE Risk/Contraindication: Risk Factor Score Per Nursin RFS Level Per Nursing on Admit: 2=Moderate GENA FRANCISCO MD Jan 26, 2020 11:35
--- NOTE | 2020-01-26 11:45 | NUR ---
RT NOTIFIED OF HOME O2 EVAL
[2020-01-26 12:00] VITALS: BP 120/90
[2020-01-26] MEDS ORDERED: CEFD300C3 PO (12:17)
--- NOTE | 2020-01-26 12:18 | Discharge Summary ---
Discharge Summary Hospital Course Was the Problem List Reviewed?: Yes Problems/Dx: (1) Person under investigation for COVID-19 Status: Acute (2) Tachycardia Status: Acute (3) Dyspnea Status: Acute Qualifiers: Qualified Codes: R06.02 - Shortness of breath Hospital Course Date of Admission: Jan 23, 2020 at 04:42 Admission Diagnosis : Family Physician/Provider: Jaspreet Waldrop DO Date of Discharge: 01/26/20 Discharge Diagnosis: Hypoxia, CHF, non-ischemic cardiomyopathy, bed bugs, PNA Hospital Course: Theresa Perera is a 34 y/o female with hx of gout and recent bronchitis presents for SOB and associated chest pain. Patient stated that she had diagnosis of pneumonia about 1 month ago and has since felt SOB, reporting she had a coughing fit to the point she felt chest pain and could not catch her breath which prompted her ER visit. Patient was given 1L fluid bolus and had VQ scan ordered (unable to get CT angiogram secondary to renal insufficiency). Patient was admitted, cxr was consistent with PNA and patient was treated with abx. Cardiology was consulted secondary to chest pain which prompted subsequent cardiac catheterization: Congestive heart failure, acute left ventricular systolic dysfunction, nonischemic cardiomyopathy. Patient reports no current complaints, states she can breathe freely and is able to ambulate without assistance. Patient will be d/c home with halter monitor to monitor symptoms having been cleared by cardiology. JARROD BARON STUDENT Labs and Pending Lab Test: Laboratory Tests 01/26/20 05:50: White Blood Count 18.3H, Red Blood Count 3.95, Hemoglobin 11.2L, Hematocrit 36, Mean Corpuscular Volume 91, Mean Corpuscular Hemoglobin 28, Mean Corpuscular Hemoglobin Concent 31L, Red Cell Distribution Width 14.8H, Platelet Count 294, Mean Platelet Volume 9.6, Immature Granulocyte % (Auto) 1, Neutrophils (%) (Auto) 86H, Lymphocytes (%) (Auto) 9L, Monocytes (%) (Auto) 4, Eosinophils (%) (Auto) 0, Basophils (%) (Auto) 0, Neutrophils # (Auto) 15.7H, Lymphocytes # (Auto) 1.7, Monocytes # (Auto) 0.8, Eosinophils # (Auto) 0.0, Basophils # (Auto) 0.0, Immature Granulocyte # (Auto) 0.1, Sodium Level 140, Potassium Level 3.9, Chloride Level 111H, Carbon Dioxide Level 18L, Anion Gap 11, Blood Urea Nitrogen 27H, Creatinine 1.29, Estimat Glomerular Filtration Rate 48, BUN/Creatinine Ratio 21, Glucose Level 114H, Calcium Level 8.4L, Corrected Calcium 8.9, Total Bilirubin 1.0, Aspartate Amino Transf (AST/SGOT) 40H, Alanine Aminotransferase ( ALT/SGPT) 75H, Alkaline Phosphatase 51, Total Protein 6.2L, Albumin 3.4 Home Meds Active Reported Benadryl (Diphenhydramine HCl) 25 Mg Capsule 25-50 Mg PO Q6H PRN Tylenol Extra Strength (Acetaminophen) 500 Mg Tablet 1,000 Mg PO Q6H PRN Symbicort 160-4.5 Mcg Inhaler (Budesonide/Formoterol Fumarate) 10.2 Gm Hfa.aer.ad 2 Puff INH BID Allopurinol 300 Mg Tablet 300 Mg PO DAILY Assessment/Pt Instructions pcp 1 week Discharge Planning: <30 minutes discharge planning Discharge Instructions Discharge Diet: No Restrictions Discharge Physical Examination Vital Signs Vital Signs Date Time Temp Pulse Resp B/P (MAP) Pulse Ox O2 Delivery O2 Flow Rate FiO2 01/26/20 10:46 94 Nasal Cannula 1.00 01/26/20 08:00 36.2 128 18 119/93 (102) 01/23/20 08:17 28 General Appearance: No Apparent Distress, WD/WN Allergies: Coded Allergies: Penicillins (Verified Allergy, Unknown, 01/23/20) azithromycin (Verified Allergy, Unknown, 01/25/20) cefaclor (Verified Allergy, Unknown, 10/14/07) Discharge Summary Date of Admission Jan 23, 2020 at 04:42 Date of Discharge Discharge Date: Jan 26, 2020 Admission Diagnosis Hypoxia Discharge Diagnosis PNA w/u mostly c/w pulmonary edema (1) Person under investigation for COVID-19 Status: Acute (2) Tachycardia Status: Acute (3) Dyspnea Status: Acute Qualifiers: Qualified Codes: R06.02 - Shortness of breath Clinical Quality Measures DVT/VTE Risk/Contraindication: Risk Factor Score Per Nursin RFS Level Per Nursing on Admit: 2=Moderate KATERINE ERDDY DO Jan 26, 2020 12:18
[2020-01-26] MEDS ORDERED: LOSA25TA41 PO (12:36)
[2020-01-26] MEDS ORDERED: METO-333 PO (12:36)
--- NOTE | 2020-01-26 13:13 | Progress Note ---
JARROD BARON MED STUDENT 01/26/20 1313: Progress Note Theresa Perera is a 34 y/o female with hx of gout and recent bronchitis presents for SOB and associated chest pain. Patient stated that she had diagnosis of pneumonia about 1 month ago and has since felt SOB, reporting she had a coughing fit to the point she felt chest pain and could not catch her breath which prompted her ER visit. Patient was given 1L fluid bolus and had VQ scan ordered (unable to get CT angiogram secondary to renal insufficiency). Patient was admitted, cxr was consistent with PNA and patient was treated with abx. Cardiology was consulted secondary to chest pain which prompted subsequent cardiac catheterization: Congestive heart failure, acute left ventricular systolic dysfunction, nonischemic cardiomyopathy. Patient reports no current complaints, states she can breathe freely and is able to ambulate without assistance. Patient will be d/c home with halter monitor to monitor symptoms having been cleared by cardiology. LISA SANTOS DO 01/27/20 0554: Supervisory-Addendum Brief Verification & Attestation Participated in pt care: history, MDM, physical Personally performed: exam, history, MDM, supervision of care Care discussed with: Medical Student Procedures: n/a Results interpretation: Verified all documentation Verification and Attestation of Medical Student E/M Service A medical student performed and documented this service in my presence. I reviewed and verified all information documented by the medical student and made modifications to such information, when appropriate. I personally performed the physical exam and medical decision making. Lisa Santos, Jan 27, 2020,05:54 JARROD BARON MED STUDENT Jan 26, 2020 13:13 LISA SANTOS DO Jan 27, 2020 05:54
--- NOTE | 2020-01-26 13:47 | NUR ---
PT OKAY TO DISCHARGER PER DR. FRANCISCO. PT WILL NEED TO FOLLOW UP IN 2 WEEKS. MEDICATION ALSO CLARIFIED IN PROGRESS NOTE- PT IS NOT ON ENTRESTO. WILL GO HOME WITH LIFE VEST.
[2020-01-26 15:04] VITALS: BP 119/93
--- NOTE | 2020-01-26 15:05 | NUR ---
pt does not qualify for home o2. pt did not dip down to 88% on O2 saturation. Addendum: 01/26/20 at 1506 by GAETANO WALLACE RT Amended: Links added.
[2020-01-26 15:55] VITALS: BP 119/93
== END 2020-01-26 15:55 | disposition home or self-care (01) | DRG 286 ==
LOC: EDUNIT# 02:26 → ER 02:29 → 4TH 04:42 → OBSVTOIN 04:42
PROVIDERS: ADMIT Internal Medicine; ATTEND Internal Medicine
PROC: 4A023N7 Measurement of Cardiac Sampling and Pressure, Left Heart, Percutaneous Approach (ICD-10-PCS; principal; 2020-01-24)
PROC: B2111ZZ Fluoroscopy of Multiple Coronary Arteries using Low Osmolar Contrast (ICD-10-PCS; 2020-01-24)
DX: I50.23 Acute on chronic systolic (congestive) heart failure (principal); J18.9 Pneumonia, unspecified organism; I42.8 Other cardiomyopathies; I95.9 Hypotension, unspecified; R00.0 Tachycardia, unspecified; Z20.828 Contact with and (suspected) exposure to other viral communicable diseases; I25.10 Atherosclerotic heart disease of native coronary artery without angina pectoris; N18.9 Chronic kidney disease, unspecified; M10.9 Gout, unspecified
CPT/HCPCS: 36415; 71045; 71046; 80048; 80053; 81000; 82962; 83605; 83880; 84145; 84443; 84484; 84703; 85007; 85025; 85027; 85379; 86141; 86618; 86666; 86668; 86757; 87040; 87635; 93005; 93041; 93306; 93458; 94640; 94760; 94761

== ENCOUNTER → 2020-05-13 | Outpatient (CLI) | payer MEDICAID ==
[~2020-05-13] MED LIST changes: +ACET-2267 PO; +ALLO300T2 PO; +BUDE10.2 INH; +CEFD300C3 PO; +DIPH25CA79 PO; +LOSA25TA41 PO; +METO-333 PO
== END ==
LOC: CARD 09:48
PROVIDERS: ATTEND Physician Assistant
DX: I50.9 Heart failure, unspecified (principal); I08.1 Rheumatic disorders of both mitral and tricuspid valves
CPT/HCPCS: 93306

== ENCOUNTER 2020-05-22 11:15 | Day surgery (SDC) | payer MEDICAID ==
[2020-05-22] VITALS (13 sets, daily range): BP systolic 107–126; BP diastolic 61–96
[~2020-05-22] VITALS: Ht 163 cm; Wt 95.0 kg
[2020-05-22] MEDS: NS IV 1000 ML 1,000 ML IV SCH ×2 (10:01→20:03)
[2020-05-22 10:03] LABS: MEAN PLATELET VOLUME 8.6 fL (9.0-12.2); WHITE BLOOD COUNT 8.1 10^3/uL (4.3-11.0)
[2020-05-22 10:15] LABS: INR 1.1 (0.8-1.4); PROTHROMBIN TIME PATIENT 14.4 SEC (12.2-14.7)
--- NOTE | 2020-05-22 10:17 | Cardiac Procedure Note-CS/ASA ---
Pre-Procedure Note Pre-Op Procedure Note H&P Reviewed The H&P was reviewed, patient examined and no changes noted. Date H&P Reviewed: May 22, 2020 Time H&P Reviewed: 10:16 Conscious Sedation Pre-Proced Time 10:16 ASA Score 3 For ASA 3 and 4: Consider anesthesia and medical clearance. Also, for patients with a history of failed moderate sedation consider anesthesia. Airway Lungs Heart ASA score ASA 1: a normal healthy patient ASA 2: a patient with a mild systemic disease (mid diabetes, controlled hypertension, obesity x ASA 3: a patient with a severe systemic disease that limits activity (angina, COPD, prior Myocardial infarction) ASA 4: a patient with an incapacitating disease that is a constant threat to life (CHF, renal failure) ASA 5: a moribund patient not expected to survive 24 hrs. (ruptured aneurysm) ASA 6: a declared brain- patient whose organs are being harvested. For emergent operations, add the letter E after the classification Mallampati Classification Grade 3 Sedation Plan Analgesia, Amnesia, Plan communicated to team members, Discussed options with patient/fam, Discussed risks with patient/fam The patient is an appropriate candidate to undergo the planned procedure, sedation, and anesthesia. The patient immediately re-assessed prior to indication. GENA FRANCISCO MD May 22, 2020 10:17
[2020-05-22 10:24] LABS: ALBUMIN 3.8 GM/DL (3.2-4.5); BILIRUBIN,TOTAL 1.4 MG/DL (0.1-1.0); CALCIUM 8.7 MG/DL (8.5-10.1); CREATININE SERUM 1.38 MG/DL (0.60-1.30); POTASSIUM 3.9 MMOL/L (3.6-5.0); TOTAL PROTEIN 6.9 GM/DL (6.4-8.2)
--- NOTE | 2020-05-22 10:26 | Diagnostic Imaging Report ---
INDICATION: CHF. Coronary artery disease. FINDINGS: The upright chest shows the heart size to be upper normal. The vascularity is normal. The lungs are clear. There is no effusion or pneumothorax. IMPRESSION: No acute abnormality is seen. The left lower lobe infiltrate has cleared since the prior study with no other significant change from 01/24/2020. Dictated by: Dictated on workstation # [id number]
[~2020-05-22 11:15] MED LIST changes: +BACITRACIN 50000 UNITS/500 ML NS IR ONE; +BACITRACIN INJECTION 50,000 UNIT, SODIUM CHLORIDE 0.9% IRRIGATIO 500 ML IR ONE; +HEParin (CATH LAB) 1,000 ML IV ONE; +LIDOCAINE 1% INJ 20 ML 20 ML VIAL ONE; +MIDAZOLAM 5 MG/5 ML (VERSED) VIAL ONE; +NS IV 1000 ML 1,000 ML ONE; +VANCOMYCIN INJECTION 1,000 MG in NS (IVPB) 250 ML IV NR; +fentaNYL INJECTION 100 MCG/2 ML AMP ONE; +meTOprolol 5 MG/5 ML (LOPRESSOR) VIAL ONE
[2020-05-22] MEDS ORDERED: proPOfol 200 MG/20 ML (DIPRIVAN) VIAL IV ONE (11:22)
--- NOTE | 2020-05-22 11:55 | Anesthesia-General Post-Op ---
MAC Significant Intra-Op Events Notes pt tolerated sedation well Patient Condition Mental Status/LOC: Same as Preop Cardiovascular: Satisfactory Nausea/Vomiting: Absent Respiratory: Satisfactory Pain: Controlled Complications: Absent Post Op Complications Complications None Follow Up Care/Instructions Patient Instructions None needed. Anesthesiology Discharge Order Discharge Order Patient is doing well, no complaints, stable vital signs, no apparent adverse anesthesia problems. No complications reported per nursing. RANJAN HENSON CRNA May 22, 2020 11:55
[2020-05-22] MEDS ORDERED: PATIENT MAY USE OWN MEDS, ALL PO SCH (12:00)
[2020-05-22] MEDS ORDERED: NS IV 1000 ML 1,000 ML IV SCH (12:00)
--- NOTE | 2020-05-22 12:06 | ICD Implantation ---
Single Chamber ICD Implant DATE OF SERVICE: 35 female SINGLE CHAMBER ICD IMPLANTATION PRIMARY PHYSICIAN: REFERRING PHYSICIAN: AUTOMOTIVE CONSULTANT: Gena Torres INDICATION: PREOPERATIVE DIAGNOSES: Congestive heart failure, chronic compensated left ventricular systolic dysfunction, nonischemic cardiomyopathy POSTOPERATIVE DIAGNOSES: Congestive heart failure HISTORY: ICD implantation is recommended. PROCEDURE PERFORMED: 1. Single-chamber ICD implantation. 2. Implantable loop recorder explantation. 3. Venogram. 4. DFT testing. COMPLICATIONS: None. ESTIMATED BLOOD LOSS: 20 mL. SPECIMENS: None. ANESTHESIA: Conscious sedation. ORAL ANTICOAGULATION: None. FLUOROSCOPY TIME: FLUOROSCOPY DOSE: CONTRAST DOSE: PROCEDURE DETAILS: After all the questions were answered, an informed consent was taken. All the risks and complication were explained in detail. The patient was brought to the EP lab. The patient's right and left chest was prepped and draped in the usual sterile fashion. A 2-inch horizontal incision was made 1 cm below the clavicle and dissection carried down to the pectoralis fascia. IV antibiotics were administered prior to first incision. Under fluoroscopic guidance, access was gained in the axillary vein and a regular J-wire was placed. We then introduced a sheath into the axillary vein. A ICD lead was inserted. This is a single-coiled ICD lead. The RV lead was inserted across the tricuspid valve to an apical septal portion of the RV. The lead position was checked in BRUNEIAN and MUSTAFA view. The screw was deployed and lead connected to the programmer developer. Good sensing and pacing thresholds were obtained. Diaphragmatic pacing was ruled out. The lead was secured with 2-0 Vicryl nonabsorbable sutures. The lead was secured to the underlying muscle and fascia. We then took an ICD generator and the lead was connected to the device in a hermetic fashion. The device and it was placed in the pocket. Aggressive irrigation with normal saline solution was done. Interrogation of the device revealed good integrity of the leads and connection. The wound was closed using 2 layers. The first layer was an interrupted 2-0 Vicryl. The second layer was an uninterrupted 4-0 Vicryl suture. Half inch Steri-Strips and a small dressing was then applied to the wound. DFT testing was done with anesthesia support. The induction mechanism was a T- shock. The first T-shock was at 13 usual and it was successful in terminating ventricular fibrillation. Rhythm was restored. Impedance was 36, charge time 7.1, the past with a B to apex. DEVICE INFORMATION: [place] XT VR MRI Serial [id number] Lead [id number] INTRAOPERATIVE DEVICE TESTING: RV lead bipolar, R wave 9.4 mV, lead impedance 893, HVB impedance 32, HVX impedance 44, threshold at pacing 0.7 mV at 0.4 ms. DFT testing, successful in terminating ventricular fibrillation with single shock at 30 J DEVICE INTERROGATION IMMEDIATELY POSTOP: Same PLAN: The patient will be observed for 23 hours. We will continue with two more dosages of IV antibiotics. We will check a chest x-ray and interrogate the device in the morning. An EKG will be done as well. If everything checks out, the patient will be discharged tomorrow. CONCLUSION: 1. Successful implantation of single chamber ICD for primary prevention 2. Successful DFT testing in terminating ventricular fibrillation FINAL DIAGNOSIS: Congestive heart failure, chronic compensated left ventricular systolic dysfunction, nonischemic cardiomyopathy Hypertension Hyperlipidemia GENA TORRES MD May 22, 2020 12:06
--- NOTE | 2020-05-22 12:58 | Diagnostic Imaging Report ---
INDICATION: Pacemaker placement. TIME OF EXAM: 12:15 PM. COMPARISON: Correlation is made with the prior chest from earlier this same day. FINDINGS: A cardiac defibrillator has been placed with the lead tip in the region of the right ventricle. The heart is enlarged. No pneumothorax is identified. The lungs are clear. There is no effusion. IMPRESSION: Defibrillator placement. No pneumothorax is detected. Dictated by: Dictated on workstation # [id number]
[2020-05-22] MEDS: meTOprolol TARTRATE 25 MG (LOPRESSOR) TABLET PO SCH (20:04)
[2020-05-22] MEDS: ACETAMINOPHEN 325 MG TABLET PO PRN (20:04)
[2020-05-22] MEDS ORDERED: ADVAIR HFA 115/21 MCG INHALER 8 GM IH SCH (21:00)
[2020-05-23] VITALS: BP 133/93
[2020-05-23 03:17] LABS: HEMOGLOBIN 11.4 g/dL (11.5-16.0); MEAN PLATELET VOLUME 8.8 fL (9.0-12.2)
[2020-05-23 03:44] LABS: ALBUMIN 3.5 GM/DL (3.2-4.5); BILIRUBIN,TOTAL 1.3 MG/DL (0.1-1.0); CALCIUM 8.5 MG/DL (8.5-10.1); CREATININE SERUM 1.15 MG/DL (0.60-1.30); POTASSIUM 3.7 MMOL/L (3.6-5.0); TOTAL PROTEIN 6.1 GM/DL (6.4-8.2)
[2020-05-23 04:00] VITALS: BP 122/88
[2020-05-23] MEDS: ACETAMINOPHEN 325 MG TABLET PO PRN (04:00)
[2020-05-23] MEDS ORDERED: CLIN300C12 PO (05:50)
--- NOTE | 2020-05-23 05:50 | Discharge Inst-Post CATH ---
Discharge Inst-CATH/EP Problems Reviewed?: Yes Post Cardiac Cath/EP D/C Inst Follow Up/Plan Appointment with Dr Torres in one weeks <b>CARDIAC CATH/EP PROCEDURE DISCHARGE INSTRUCTIONS</b> ACTIVITY * Go Home directly and rest. * Limit activity of the leg (or wrist if it was used) for 7 days including aerobics, swimming, jogging, bicycling, etc. * Restrict stair-climbing for 7 days if possible, if not, climb up with your non-cath leg, then bring together on the same step. * Avoid lifting, pushing, pulling or excessive movement of the affected extremity for 7 days. * Customary sexual activity may be resumed after 2 days-use caution not to use a position that strains or causes pain to the affected extremity. * No driving for 24 hours. * NO SMOKING. * Avoid straining for bowel movements for 7 days. * Gentle walking on level ground is allowed. * Returning to work will depend on the type of procedure and the results. Your doctor will discuss this with you. CALL YOUR DOCTOR FOR ANY OF THE FOLLOWING: *If bleeding from the puncture site occurs- Apply gentle pressure to site with clean cloth and call your doctor or EMS. * If a knot or lump forms under the skin, increases in size, or causes pain. * If bruising appears to be worsening or moving further down your leg instead of disappearing. * Temperature above 101 F. CARE OF YOUR GROIN INCISION; * Bruising or purple discoloration of the skin near the puncture site is common. * You may shower only, no bathtub bathing for 5 days. Be careful to avoid slipping as your leg may feel stiff. * If a closure device was used on your femoral artery, please see the attached guide regarding care of the device and your leg. * Leave dressing on FOR 24 hours. CARE OF YOUR WRIST INCISION; * Bruising or purple discoloration of the skin near the puncture site is common. * You may shower. * DO NOT submerge wrist. * Leave dressing on FOR 24 hours. GENA TORRES MD May 23, 2020 05:50
[2020-05-23] MEDS: NS IV 1000 ML 1,000 ML IV SCH (05:55)
[2020-05-23 08:00] VITALS: BP 121/95
[2020-05-23] MEDS ORDERED: ALLOPURINOL 300 MG (ZYLOPRIM) TAB PO SCH (09:00)
[2020-05-23] MEDS ORDERED: VANCOMYCIN INJECTION 1,000 MG in NS (IVPB) 250 ML IV SCH (09:00)
[2020-05-23] MEDS ORDERED: LOSARTAN 25 MG (COZAAR) TAB PO SCH (09:00)
[2020-05-23] MEDS: meTOprolol TARTRATE 25 MG (LOPRESSOR) TABLET PO SCH (09:13)
--- NOTE | 2020-05-23 10:13 | Cardiology Progress Note ---
Subjective Date Seen by Provider: May 23, 2020 Time Seen by Provider: 10:12 Subjective/Events-last exam patient was seen at bedside laying down comfortably, no new complaint Objective-Cardiology Exam Last Set of Vital Signs Vital Signs 05/22/20 05/23/20 05/23/20 05/23/20 21:00 08:00 08:54 09:00 Temp 36.6 Pulse 107 Resp 20 B/P (MAP) 121/95 (104) Pulse Ox 98 O2 Delivery Room Air O2 Flow Rate 2.00 Capillary Refill : Greater Than 3 Seconds I&O Intake and Output 05/22/20 23:59 Intake Total 400 ml Balance 400 ml Intake Oral 400 ml # Voids 2 General: Alert, Oriented X3, Cooperative HEENT: Atraumatic, PERRLA Neck: Supple, No JVD, No Thyromegaly Lungs: Clear to Auscultation, Normal Air Movement Heart: Regular Rate, Normal S1, Normal S2, No Murmurs Abdomen: Normal Bowel Sounds, Soft, No Tenderness, No Hepatosplenomegaly, No Masses Extremities: No Clubbing, No Cyanosis, No Edema, Normal Pulses, No Tenderness/Swelling Skin: No Rashes, No Breakdown, No Significant Lesion Neuro: Normal Gait, Normal Speech, Strength at 5/5 X4 Ext, Normal Tone, Se nsation Intact Psych/Mental Status: Mental Status NL, Mood NL Results Lab Laboratory Tests 05/23/20 02:50 A/P-Cardiology Admission Diagnosis congestive heart failure Single-chamber ICD implant Hypotension Assessment/Plan congestive heart failure, chronic compensated left ventricular systolic dysfunction, nonischemic cardiomyopathy, maintained on JAZMYNE inhibitor and beta blockers and doing well Status post single-chamber ICD implant for primary prevention. Site is healing well. Interrogation showed good sensing and capture activity Borderline hypotension, tolerating medication well BMI 35 discussed weight loss GENA FRANCISCO MD May 23, 2020 10:13
== END 2020-05-23 10:25 | disposition home or self-care (01) ==
LOC: CSD 12:23 → CATH 05-23 10:25
PROVIDERS: ATTEND Internal Medicine Cardiovascular Disease
DX: I13.0 Hypertensive heart and chronic kidney disease with heart failure and stage 1 through stage 4 chronic kidney disease, or unspecified chronic kidney disease (principal); I50.22 Chronic systolic (congestive) heart failure; N18.9 Chronic kidney disease, unspecified; E78.5 Hyperlipidemia, unspecified; E66.9 Obesity, unspecified; Z68.35 Body mass index [BMI] 35.0-35.9, adult; Z79.899 Other long term (current) drug therapy; Z88.0 Allergy status to penicillin; Z88.1 Allergy status to other antibiotic agents; Z83.3 Family history of diabetes mellitus
CPT/HCPCS: 33249; 71045; 80053 ×2; 80061; 85027 ×2; 85610; 85730; 87081; 93005; 93641; 94640; C1722; C1895; U0002; 36415; 87635

== ENCOUNTER 2021-08-29 22:01 | Emergency (ER) | payer MEDICAID ==
[~2021-08-29] VITALS: Ht 162.6 cm; Wt 100.0 kg
[~2021-08-29 22:01] MED LIST changes: -BACITRACIN 50000 UNITS/500 ML NS IR ONE; -BACITRACIN INJECTION 50,000 UNIT, SODIUM CHLORIDE 0.9% IRRIGATIO 500 ML IR ONE; +CLIN-144 PO; -HEParin (CATH LAB) 1,000 ML IV ONE; -LIDOCAINE 1% INJ 20 ML 20 ML VIAL ONE; -MIDAZOLAM 5 MG/5 ML (VERSED) VIAL ONE; -NS IV 1000 ML 1,000 ML ONE; -VANCOMYCIN INJECTION 1,000 MG in NS (IVPB) 250 ML IV NR; -fentaNYL INJECTION 100 MCG/2 ML AMP ONE; -meTOprolol 5 MG/5 ML (LOPRESSOR) VIAL ONE
--- NOTE | 2021-08-29 22:40 | ED Cough/URI ---
General Chief Complaint: COVID19 Suspect/Confirmed Stated Complaint: COUGH, BODY ACHES, V/N,SOB Source: patient Exam Limitations: no limitations History of Present Illness Date Seen by Provider: August 29, 2021 Time Seen by Provider: 22:25 Initial Comments Patient is a 36-year-old female who presents to the emergency room today with a chief complaint of cough, body aches, fever noted today to 103, nausea and vomiting due to her cough and feeling short of breath. Patient has a history of hypertension/cardiomyopathy and follows with Dr. Torres. This was diagnosed about a year ago. She states her cough and shortness of breath of started within the last couple of days. She hears a "rattling" when she lays flat. No swelling in her lower extremities or cramping in her calves. She denies burning with urination or diarrhea. She states her cough is occasionally productive. She states her right ear hurts a little bit. She is COVID vaccinated. No sore throat. A little abdominal discomfort with vomiting. No sick contacts that she is aware of. She states that she is compliant with her medications. She does not smoke. She does have to use inhalers occasionally for her breathing. She denies chest pain except discomfort with cough. All other review of systems reviewed and negative except as stated. Timing/Duration: yesterday Severity/Quality: moderate Prior Episodes/Possible Cause: no prior episodes Modifying Factors: Improves With Albuterol Inhaler ((makes her cough)) Associated Symptoms: chest pain/soreness, cough, earache (right), fever/chills, headache, lightheadedness, muscle aches, shortness of breath Allergies and Home Medications Allergies Coded Allergies: Penicillins (Verified Allergy, Unknown, 01/23/20) azithromycin (Verified Allergy, Unknown, 01/25/20) cefaclor (Verified Allergy, Unknown, 10/14/07) Patient Home Medication List Home Medication List Reviewed: Yes Acetaminophen (Tylenol Extra Strength) 500 Mg Tablet, 1,000 MG PO Q6H PRN for PAIN-MILD (1-4), (Reported) Entered as Reported by: LETTY MACK on 01/23/20 2437 Allopurinol (Allopurinol) 300 Mg Tablet, 300 MG PO DAILY, (Reported) Entered as Reported by: RICKEY BARRIGA on 01/23/20 0615 Budesonide/Formoterol Fumarate (Symbicort 160-4.5 Mcg Inhaler) 10.2 Gm Hfa.aer.ad, 2 PUFF INH BID, (Reported) Entered as Reported by: LETTY MACK on 01/23/20 174 Clindamycin HCl (Clindamycin HCl) 300 Mg Capsule, 300 MG PO Q6H Prescribed by: GENA TORRES on 05/23/20 0550 Diphenhydramine HCl (Benadryl) 25 Mg Capsule, 25-50 MG PO Q6H PRN for ALLERGY SYMPTOMS, (Reported) Entered as Reported by: LETTY MACK on 01/23/201748 Furosemide (Lasix) 20 Mg Tablet, 20 MG PO DAILY Prescribed by: YEISON SZYMANSKI on 08/30/2152 Guaifenesin/Codeine (Robitussin Ac (Codeine) Syrup) 10 Ml Syrp, 10 ML PO Q8H PRN for cough Prescribed by: YEISON SZYMANSKI on 08/30/21 005 Losartan Potassium (Losartan Potassium) 25 Mg Tablet, 25 MG PO DAILY Prescribed by: KATERINE REDDY on 01/26/20 1236 Metoprolol Tartrate (Metoprolol Tartrate) 25 Mg Tablet, 12.5 MG PO BID Prescribed by: KATERINE REDDY on 01/26/20 1236 Ondansetron (Ondansetron Odt) 4 Mg Tab.rapdis, 4 MG PO Q8H PRN for cough Prescribed by: YEISON SZYMANSKI on 08/30/2152 Review of Systems Review of Systems Constitutional: see HPI, fever, malaise EENTM: ear pain (right) Respiratory: cough, orthopnea, phlegm (occasional), short of breath Gastrointestinal: nausea, vomiting Genitourinary: no symptoms reported Musculoskeletal: muscle pain (muscle aches) Skin: no symptoms reported Psychiatric/Neurological: Headache All Other Systems Reviewed Negative Unless Noted: Yes Past Yerxqgz-Pbmtlw-Pekesl Hx Patient Social History Tobacco Use?: No Substance use?: No Alcohol Use?: No Immunizations Up To Date Influenza Vaccine Up-to-Date: No; Not Current COVID19 Vaccine [place]: STATES HAS HAD 2 COVID VACCINES Past Medical History Surgeries: Yes Section Respiratory: Yes Asthma, COPD Cardiac: No Neurological: No Genitourinary: No Gastrointestinal: No Musculoskeletal: Yes Gout Endocrine: No HEENT: No Cancer: No Psychosocial: No Integumentary: No Blood Disorders: No Adverse Reaction/Blood Tranf: No Physical Exam Vital Signs - First Documented Capillary Refill : Height: 5'4.50" Weight: 243lbs. oz. [id number]; 35.75 BMI Method:Stated General Appearance: WD/WN, no apparent distress Eyes: Bilateral Eye Normal Inspection, Bilateral Eye PERRL, Bilateral Eye EOMI HEENT: PERRL/EOMI, TMs normal, pharynx normal Neck: supple Respiratory: no respiratory distress, no accessory muscle use, crackles (bilateral bases), other (room air Sats 94%) Cardiovascular: no murmur, tachycardia (140) Gastrointestinal: normal bowel sounds, non tender, soft Extremities: non-tender, normal inspection, no pedal edema, normal capillary refill Neurologic/Psychiatric: alert, normal mood/affect, oriented x 3 Skin: normal color, warm/dry Focused Exam Lactate Level 08/29/21 22:58: Lactic Acid Level 1.03 Lactic Acid Level Laboratory Tests Test 08/29/21 22:58 Lactic Acid Level 1.03 MMOL/L (0.50-2.00) Progress/Results/Core Measures Suspected Sepsis SIRS Temperature: Pulse: Respiratory Rate: Laboratory Tests 08/29/21 22:58: White Blood Count 6.5 Blood Pressure / Mean: 08/29/21 22:58: Lactic Acid Level 1.03 Laboratory Tests 08/29/21 22:58: Creatinine 1.38H, INR Comment 1.0, Platelet Count 207, Total Bilirubin 1.5H Results/Orders Lab Results Laboratory Tests Test 08/29/21 22:20 08/29/21 22:46 08/29/21 22:58 Range/Units Influenza Type A (RT-PCR) Not Detected Not Detecte Influenza Type B (RT-PCR) Detected H Not Detecte SARS-CoV-2 RNA (RT-PCR) Not Detected Not Detecte Urine Color YELLOW Urine Clarity CLEAR Urine pH 7.0 5-9 Urine Specific [place] 1.015 L 1.016-1.022 Urine Protein NEGATIVE NEGATIVE Urine Glucose (UA) NEGATIVE NEGATIVE Urine Ketones NEGATIVE NEGATIVE Urine Nitrite NEGATIVE NEGATIVE Urine Bilirubin NEGATIVE NEGATIVE Urine Urobilinogen 0.2 < = 1.0 MG/DL Urine Leukocyte Esterase 1+ H NEGATIVE Urine RBC (Auto) 3+ H NEGATIVE Urine RBC 25-50 H /HPF Urine WBC 5-10 H /HPF Urine Squamous Epithelial Cells 0-2 /HPF Urine Crystals NONE /LPF Urine Bacteria FEW H /HPF Urine Casts NONE /LPF Urine Mucus NEGATIVE /LPF Urine Culture Indicated YES White Blood Count 6.5 4.3-11.0 10^3/uL Red Blood Count 4.57 3.80-5.11 10^6/uL Hemoglobin 13.2 11.5-16.0 g/dL Hematocrit 40 35-52 % Mean Corpuscular Volume 88 80-99 fL Mean Corpuscular Hemoglobin 29 25-34 pg Mean Corpuscular Hemoglobin Concent 33 32-36 g/dL Red Cell Distribution Width 13.6 10.0-14.5 % Platelet Count 207 130-400 10^3/uL Mean Platelet Volume 8.6 L 9.0-12.2 fL Immature Granulocyte % (Auto) 0 % Neutrophils (%) (Auto) 82 H 42-75 % Lymphocytes (%) (Auto) 8 L 12-44 % Monocytes (%) (Auto) 8 0-12 % Eosinophils (%) (Auto) 2 0-10 % Basophils (%) (Auto) 1 0-10 % Neutrophils # (Auto) 5.4 1.8-7.8 10^3/uL Lymphocytes # (Auto) 0.5 L 1.0-4.0 10^3/uL Monocytes # (Auto) 0.5 0.0-1.0 10^3/uL Eosinophils # (Auto) 0.1 0.0-0.3 10^3/uL Basophils # (Auto) 0.0 0.0-0.1 10^3/uL Immature Granulocyte # (Auto) 0.0 0.0-0.1 10^3/uL Prothrombin Time 13.5 12.2-14.7 SEC INR Comment 1.0 0.8-1.4 Activated Partial Thromboplast Time 33 24-35 SEC Sodium Level 140 135-145 MMOL/L Potassium Level 4.1 3.6-5.0 MMOL/L Chloride Level 105 98-107 MMOL/L Carbon Dioxide Level 21 21-32 MMOL/L Anion Gap 14 5-14 MMOL/L Blood Urea Nitrogen 14 7-18 MG/DL Creatinine 1.38 H 0.60-1.30 MG/DL Estimat Glomerular Filtration Rate 52 BUN/Creatinine Ratio 10 Glucose Level 100 70-105 MG/DL Lactic Acid Level 1.03 0.50-2.00 MMOL/L Calcium Level 10.0 8.5-10.1 MG/DL Corrected Calcium 9.8 8.5-10.1 MG/DL Total Bilirubin 1.5 H 0.1-1.0 MG/DL Aspartate Amino Transf (AST/SGOT) 23 5-34 U/L Alanine Aminotransferase (ALT/SGPT) 39 0-55 U/L Alkaline Phosphatase 59 40-136 U/L B-Type Natriuretic Peptide 314.8 H <100.0 PG/ML Total Protein 7.8 6.4-8.2 GM/DL Albumin 4.2 3.2-4.5 GM/DL My Orders Orders - YEISON SZYMANSKI MD Covid 19 Inhouse Test (08/29/21:) Influenza A And B By Pcr (08/29/21:) Isolation Central Supply Req (08/29/21:) Cbc With Automated Diff (08/29/21:32) Comprehensive Metabolic Panel (08/29/21:32) Blood Culture (08/29/21:32) Sputum Culture (08/29/21:) Urinalysis (08/29/21:) Urine Culture (08/29/21:32) Protime With Inr (08/29/21:) Partial Thromboplastin Time (08/29/21:32) Chest 1 View, Ap/Pa Only (08/29/21:) Ed Iv/Invasive Line Start (08/29/21:32) Ed Iv/Invasive Line Start (08/29/21:32) Vital Signs Adult Sepsis Patie Q15M (08/29/21:32) O2 (08/29/21:) Remove Rings In Anticipation O (08/29/21:) Lactic Acid Analyzer (08/29/21:32) Bnp [place] (08/29/21:32) Ekg Tracing (08/29/21:32) Acetaminophen Tablet (Tylenol Tablet) (08/29/21:) Promethazine Injection (Phenergan Injec (08/29/21 23:45) Ns (Ivpb) (Sodium Chloride 0.9% Ivpb Bag (08/29/21 23:39) Medications Given in ED Current Medications Medications Dose Ordered Sig/Kd Route Start Time Stop Time Status Last Admin Dose Admin Acetaminophen 1,000 mg ONCE ONCE PO 08/29/21 22:45 08/29/21 22:46 DC 08/29/21 22:50 1,000 MG Promethazine HCl 25 mg ONCE ONCE IVP 08/29/21 23:45 08/29/21 23:46 DC 08/29/21 23:43 25 MG Sodium Chloride 50 ml @ ud STK-MED ONCE .ROUTE 08/29/21 23:39 08/29/21 23:43 DC 08/29/21 23:43 999 MLS/HR Vital Signs/I&O 08/29/21 08/29/21 22:15 22:15 Temp 39.5 Pulse 135 Resp 20 B/P (MAP) 133/88 (103) Pulse Ox 92 O2 Delivery Room Air Room Air Capillary Refill : Progress Note : Time: 00:47 Progress Note Heart rate down to about 111. Oxygen saturations 94%. Labs reviewed, not s eptic. Positive for influenza B. She is now afebrile. She looks good no increased work of breathing/respiratory distress. Since her symptoms started 2 days ago I am not going to give her a Tamiflu. We will send her home with nausea medicines and cough medications to her pharmacy in [place]. I have advised her to call her primary care doctor's office on Wednesday. I am going to give her a little bit of Lasix for a couple of days as she has a little bit of excess fluid in her chest. She is comfortable with this plan of care and agreeable. All questions are sought and answered. Patient did have evidence of urinary tract infection on urinalysis however she is asymptomatic. We discussed antibiotics and at this time will hold off until her culture comes back, if she has growth on culture we will call her and put her on the antibiotics. Patient is stable for discharge. ECG Initial ECG Impression Date: August 29, 2021 Initial ECG Impression Time: 22:40 Initial ECG Rate: 133 Initial ECG Rhythm: S.Tach Initial ECG Intervals NE interval 158 QRS 104 QTc 410 Comment LVH, poor R wave progression over the precordium, no ST segment elevation or depression she has some nonspecific ST-T wave changes in the anterior leads. Diagnostic Imaging Diagonstic Imaging: Xray Plain Films/CT/US/NM/MRI: chest Comments est reviewed by me - no infiltrate; positive fluids balance; no infiltrate; cardiomegaly Departure Impression Primary Impression: Influenza B Disposition: HOME, SELF-CARE Condition: Improved Departure-Patient Inst. Decision time for Depature: 00:48 Referrals: CUCO JOHNSON DO (PCP) Primary Care Physician GENA TORRES MD Patient Instructions: Flu, Adult ED Add. Discharge Instructions: Current cardiac fluids to stay well-hydrated. Take extra strength Tylenol which is 1000 mg every 6 hours for the next 1 to 2 days. This will keep your fever and your heart rate down. I have sent home nausea medications, Zofran you can take 1 every 6-8 hours as needed for nausea. I have also sent you home some cough medication. Please take this every 6 hours as needed. Return to the emergency department for any worsening shortness of breath, high fevers that do not come down with Tylenol or any other emergent concerning symptoms. Follow-up with your primary care doctor and Dr. Torres next week. Scripts Guaifenesin/Codeine (ROBITUSSIN AC (CODEINE) SYRUP) 10 Ml Syrp 10 ML PO Q8H PRN for cough, #120 ML Prov: YEISON SZYMANSKI MD 08/30/21 Furosemide (Lasix) 20 Mg Tablet 20 MG PO DAILY for 3 Days, #3 TAB Prov: YEISON SZYMANSKI MD 08/30/21 Ondansetron (Ondansetron Odt) 4 Mg Tab.rapdis 4 MG PO Q8H PRN for cough, #20 TAB Prov: YEISON SZYMANSKI MD 08/30/21 Copy Copies To 1: GENA TORRES MD, KATHRYN M MD August 29, 2021 22:40
[2021-08-29] MEDS ORDERED: ACETAMINOPHEN 500 MG TAB (TYLENOL) PO ONE (22:45)
[2021-08-29 22:56] LABS: BILIRUBIN,URINE NEGATIVE (NEGATIVE); CLARITY,URINE CLEAR; COLOR,URINE YELLOW; GLUCOSE, URINE (UA) NEGATIVE (NEGATIVE); KETONES,URINE NEGATIVE (NEGATIVE); LEUKOCYTE ESTERASE ,URINE 1+ (NEGATIVE); NITRITE,URINE NEGATIVE (NEGATIVE); PROTEIN,URINE NEGATIVE (NEGATIVE)
[2021-08-29 23:11] LABS: BASOPHILS % (AUTO) 1 % (0-10); EOSINOPHILS # (AUTO) 0.1 10^3/uL (0.0-0.3); EOSINOPHILS % (AUTO) 2 % (0-10); HEMATOCRIT 40 % (35-52); HEMOGLOBIN 13.2 g/dL (11.5-16.0); LYMPHOCYTES # (AUTO) 0.5 10^3/uL (1.0-4.0); LYMPHOCYTES % (AUTO) 8 % (12-44); MEAN CORPUSCULAR HEMOGLOBIN 29 pg (25-34); MEAN CORPUSCULAR HGB CONC 33 g/dL (32-36); MEAN CORPUSCULAR VOLUME 88 fL (80-99); MEAN PLATELET VOLUME 8.6 fL (9.0-12.2); MONOCYTES # (AUTO) 0.5 10^3/uL (0.0-1.0); MONOCYTES % (AUTO) 8 % (0-12); NEUTROPHILS # (AUTO) 5.4 10^3/uL (1.8-7.8); NEUTROPHILS % (AUTO) 82 % (42-75); PLATELET COUNT 207 10^3/uL (130-400); WHITE BLOOD COUNT 6.5 10^3/uL (4.3-11.0)
[2021-08-29 23:25] LABS: ALBUMIN 4.2 GM/DL (3.2-4.5); POTASSIUM 4.1 MMOL/L (3.6-5.0)
[2021-08-29 23:26] LABS: PROTHROMBIN TIME PATIENT 13.5 SEC (12.2-14.7)
[2021-08-29 23:26] LABS: BACTERIA,URINE FEW /HPF; RBC,URINE 25-50 /HPF; SQUAMOUS EPITHELIAL CELL,UR 0-2 /HPF
[2021-08-29 23:28] LABS: TOTAL PROTEIN 7.8 GM/DL (6.4-8.2)
[2021-08-29 23:29] LABS: BILIRUBIN,TOTAL 1.5 MG/DL (0.1-1.0)
[2021-08-29 23:31] LABS: CREATININE SERUM 1.38 MG/DL (0.60-1.30)
[2021-08-29] MEDS ORDERED: NS (IVPB) 50 ML ONE (23:39)
[2021-08-29] MEDS ORDERED: PROMETHAZINE INJ 25 MG/ML (PHENERGAN) AMP IVP ONE (23:45)
[2021-08-30] MEDS ORDERED: FURO-125 PO (00:53)
[2021-08-30] MEDS ORDERED: GFCD10B PO ×2 (00:53→00:55)
[2021-08-30] MEDS ORDERED: ONDA4TAB11 PO (00:53)
[2021-08-30 01:04] VITALS: BP 113/72
--- NOTE | 2021-08-30 07:57 | Diagnostic Imaging Report ---
Indication: Fever with dyspnea and cough. Comparison: 05/22/2020. Discussion: Single portable upright view of the chest was obtained. Marked cardiomegaly is again noted. Left-sided AICD is stable. No failure. No consolidation, pleural fluid, or pneumothorax. No osseous abnormality. Impression: 1. Stable cardiomegaly without failure. Dictated by: Dictated on workstation # [id number]
== END 2021-08-30 01:04 | disposition home or self-care (01) ==
LOC: EDUNIT# 22:01 → ER 22:05
DX: J10.1 Influenza due to other identified influenza virus with other respiratory manifestations (principal); I10 Essential (primary) hypertension; Z86.79 Personal history of other diseases of the circulatory system; Z20.822 Contact with and (suspected) exposure to COVID-19
CPT/HCPCS: 36415; 71045; 80053; 81000; 83605; 83880; 85025; 85610; 85730; 87040; 87088; 87636